=== PATIENT | male | born 1955 | race Caucasian/White ===

== ENCOUNTER 2016-11-03 06:59 | Inpatient (IN) | payer OTHER ==
[~2016-11-03] VITALS: Ht 182.9 cm; Wt 88.5 kg
[2016-11-03] VITALS (7 sets, daily range): BP systolic 113–174; BP diastolic 53–114
--- NOTE | 2016-11-03 07:24 | NUR ---
PT TO ED WITH FOR INCREASING ANXIETY AND DEPRESSION X "FEW WEEKS." DENIES SI/HI. REPORTS PT UNABLE TO FUNCTION AT HOME AND AT WORK. "HE HAS NERVOUS TICKS." TICKS NOTEDIN TRIAGE. PT PRESCRIBED NEW MEDICATION FOR ANXIETY/DEPRESSION "BACK IN " PT REPORTS HE JUST STARTED TAKING IT LAST WEEK. PT REPORTS THAT HE DRINKS 2 GLASSES OF WINE DAILY.
--- NOTE | 2016-11-03 07:44 | NUR ---
DR KOHLI WITH PATIENT
--- NOTE | 2016-11-03 07:56 | ED PSYCHIATRIC COMPLAINT ---
History of Present Illness General Chief Complaint: General Adult Stated Complaint: "PER PANIC ATTACK FOR WEEKS" Source: patient, family Exam Limitations: clinical condition Vital Signs & Intake/Output Vital Signs & Intake/Output Vital Signs Date Time Temp Pulse Resp B/P B/P Pulse O2 O2 Flow FiO2 Mean Ox Delivery Rate 11/03 2199 97.0 54 14 113/72 11/04 1999 97.0 60 20 132/78 11/03 2000 98 Room Air 11/03 1600 97.9 68 20 130/80 11/03 1600 97.9 68 20 130/80 99 Room Air 11/03 1600 99 Room Air 11/03 1412 Room Air Room Air 11/03 1400 69 20 142/53 11/03 1128 97.8 71 18 138/60 98 Room Air 11/03 1127 97.8 71 18 138/60 11/03 1111 99 Room Air 11/03 1041 98.8 100 20 170/114 11/03 1016 98.4 100 20 174/114 11/03 1014 98.4 100 20 174/114 99 Room Air 11/03 0932 97.8 71 18 169/94 11/03 0911 94 20 170/96 99 Room Air 11/03 0756 Room Air 11/03 0718 98.2 99 22 183/99 97 Room Air Allergies Coded Allergies: No Known Allergies (11/03/16) Reconcile Medications Amlodipine Besylate 5 MG TABLET 1 TAB PO DAILY HEART (Reported) Escitalopram Oxalate 5 MG TABLET 1 TAB PO DAILY depression (Reported) Hydrochlorothiazide 12.5 MG TABLET 1 TAB PO DAILY WATER RETENTION (Reported) Lisinopril 20 MG TABLET 1 TAB PO DAILY HEART (Reported) Omeprazole 40 MG CAPSULE.DR 1 CAP PO DAILY GI (Reported) Rosuvastatin Calcium (Crestor) 10 MG TABLET 1 TAB PO DAILY CHOLESTEROL ( Reported) Triage Note: PT TO ED WITH FOR INCREASING ANXIETY AND DEPRESSION X "FEW WEEKS." DENIES SI/HI. REPORTS PT UNABLE TO FUNCTION AT HOME AND AT WORK. "HE HAS NERVOUS TICKS." TICKS NOTEDIN TRIAGE. PT PRESCRIBED NEW MEDICATION FOR ANXIETY/DEPRESSION "BACK IN " PT REPORTS HE JUST STARTED TAKING IT LAST WEEK. Triage Nurses Notes Reviewed? yes Onset: Gradual Duration: week(s): (FEW) Timing: recent history Severity: moderate, severe Associated Symptoms: anxiety HPI: This is a 61-year-old male with history of anxiety, panic attacks, hypertension, dyslipidemia, acid reflux and anxiety presents to the ER with his for chief complaint of worsening anxiety, afraid for the future. 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 The solderer duration is long and he states he is having pain. At this time he is taking money out of his savings to pay for the mortgage. He is not suicidal but very anxious. He started to take Lexapro which his doctor prescribed him back in July but only recently filled it. Yesterday he states he took 3 pills because he was very anxious. Currently not on any short acting anxiolytic. He has a history of panic attacks. reports he is drinking 2-3 glasses of wine per night. She states he gets very forgetful. Yesterday he put up on the stove T and when she did come down the pocket while driving. Denies any drug use. Positive family history of anxiety and both mother and father. Denies any history of suicidal ideations. The states she didn't know what else to do because his symptoms are getting somewhat worse at home. He recently started to see a therapist once a week. According to the he feels better the day that he sees a therapist but other than that he is very anxious over time. Past History Travel History Traveled to [place] past 21 day No Medical History Any Pertinent Medical History? see below for history Neurological: NONE EENT: NONE Cardiovascular: hypertension, hyperlipidemia Respiratory: NONE Gastrointestinal: GERD Hepatic: NONE Renal: NONE Musculoskeletal: NONE Psychiatric: NONE Endocrine: NONE Blood Disorders: NONE Surgical History Surgical History: non-contributory Psychosocial History What is your primary language Pashto Tobacco Use: Quit >30 days ago ETOH Use: occasional use Illicit Drug Use: denies illicit drug use Family History Comment: mother and father with anxiety Hx Contributory? Yes Review of Systems Review of Systems Constitutional: Denies: chills, fever. EENTM: Reports: no symptoms. Respiratory: Denies: cough, short of breath. Cardiovascular: Denies: chest pain. GI: Reports: no symptoms. Genitourinary: Reports: no symptoms. Musculoskeletal: Reports: no symptoms. Skin: Reports: no symptoms. Neurological/Psychological: Reports: anxiety, depressed, emotional problems. Hematologic/Endocrine: Reports: no symptoms. Immunologic/Allergic: Reports: no symptoms. All Other Systems: Reviewed and Negative Physical Exam Physical Exam General Appearance: well developed/nourished, alert, awake, anxious, mild distress, moderate distress Head: atraumatic Eyes: Bilateral: PERRL, EOMI. Ears, Nose, Throat: normal pharynx, normal ENT inspection, hearing grossly normal Neck: normal inspection, supple Respiratory: normal breath sounds Cardiovascular: regular rate/rhythm Gastrointestinal: soft, non-tender Extremities: normal range of motion Neurological/Psychiatric: awake, alert, solid tire finisher II-XII nml as tested, depressed affect, OCCASIONAL TWITCHING OF WHOLE BODY Appearance/Memory/Insight: impaired insight, neat Behavoir/Eye Contact/Speech: avoids eye contact, cooperative, decreased rate of speech Skin: intact, normal color, warm/dry SAD PERSONS Done? patient not suicidal Progress Differential Diagnosis: ANXIETY, DEPRESSION, PANIC ATTACKS, ALCOHOL ABUSE Plan of Care: Orders Procedure Date/time Status URIC ACID 11/04 0500 Active PHOSPHORUS 11/04 0500 Active ICU LAB BUNDLE 11/04 0500 Active CORTISOL AM 11/04 0500 Active CBC WITHOUT DIFFERENTIAL 11/04 0500 Active BASIC ELECTROLYTES PLUS BUN&CR 11/04 0200 Active Heart Healthy Diet 11/03 L Active BASIC ELECTROLYTES PLUS BUN&CR 11/03 2200 Active BASIC ELECTROLYTES PLUS BUN&CR 11/03 1800 Complete RT: Evaluation 11/03 1412 Active BASIC ELECTROLYTES PLUS BUN&CR 11/03 1400 Complete Pathway - chart 11/03 1136 Active Wound Care/Dressing 11/03 1127 Complete Weight 11/03 1127 Complete VTE Mechanical Prophylaxis 11/03 1127 Complete Vital Signs 11/03 1127 Complete Turn and Reposition 11/03 1127 Complete Drains/Tubes 11/03 1127 Complete Teach/Educate 11/03 1127 Active Skin Integrity Protocol 11/03 1127 Active Skin/Pressure Ulcer Assess (Sk 11/03 1127 Active Precautions 11/03 1127 Active Pain Treatment and Response 11/03 1127 Active Nutritional Intake, Monitor 11/03 1127 Active Isolation 11/03 1127 Active CIWA 11/03 1127 Complete Patient Care Conference 11/03 1127 Active Activity/Ambulation 11/03 1127 Active VRE ACTIVE SURVIELLANCE 11/03 0957 Active ACTIVE SURVEILLANCE NARES 11/03 0957 Active BASIC ELECTROLYTES PLUS BUN&CR 11/03 0957 Complete TRC EVALUATION (GEN) 11/03 0918 Complete OXYGEN SETUP (GEN) 11/03 0918 Active Pathway - chart 11/03 0918 Active House Staff 11/03 0918 Active Patient Data 11/03 0918 Active Code Status 11/03 0918 Active Patient Data 11/03 0910 Active Add-on Test (ER Only) 11/03 0909 Active Seizure Precautions 11/03 0908 Active CIWA 11/03 0906 Active ED Holding Orders 11/03 0905 Active Admit to inpatient 11/03 0905 Active Vital Signs 11/03 0905 Active Code Status 11/03 0905 Complete Add-on Test (ER Only) 11/03 0852 Active Add-on Test (ER Only) 11/03 0805 Active EKG 11/03 0805 Active URINE OSMOLALITY 11/03 0800 Complete URINE LYTES, SPOT 11/03 0800 Complete SERUM OSMOLALITY 11/03 0800 Complete MAGNESIUM 11/03 0800 Complete URINE DRUGS OF ABUSE 11/03 0751 Complete THYROID STIMULATING HORMONE 11/03 0751 Complete TROPONIN LEVEL 11/03 0751 Complete FREE T4 11/03 0751 Complete FOLIC ACID 11/03 0751 Complete ETHANOL 11/03 0751 Complete COMPREHENSIVE METABOLIC PANEL 11/03 0751 Complete CBC WITHOUT DIFFERENTIAL 11/03 0751 Complete VITAMIN B12 11/03 0751 Complete THERAPIST ORDERS 11/03 UNK Complete Lab Add-on Test 11/03 UNK Active VTE Mechanical Prophylaxis 11/03 UNK Active Vital Signs 11/03 UNK Complete MISTAKE 11/03 UNK Active Intake & Output 11/03 UNK Active Hemoccult 11/03 UNK Active CIWA 11/03 UNK Complete SOCIAL WORK CONSULT 11/03 UNK Active PSYCHIATRIC CONSULT 11/03 UNK Active Current Medications Sig/Yosvany Start time Last Medication Dose Stop Time Status Admin Lisinopril 20 MG DAILY 11/03 1049 AC (Prinivil) Amlodipine Besylate 5 MG DAILY 11/03 1009 AC 11/03 (Norvasc) 1041 Laboratory Tests 11/03/16 2158: Sodium Pending, Potassium Pending, Chloride Pending, Carbon Dioxide Pending, Anion Gap Pending, BUN Pending, Creatinine Pending, BUN/Creatinine Ratio Pending 11/03/16 1810: Anion Gap 12, Estimated GFR > 60, BUN/Creatinine Ratio 11.1 11/03/16 1400: Anion Gap 11, Estimated GFR > 60, BUN/Creatinine Ratio 11.3 11/03/16 1200: Sodium Cancelled, Potassium Cancelled, Chloride Cancelled, Carbon Dioxide Cancelled, Anion Gap Cancelled, BUN Cancelled, Creatinine Cancelled, BUN/ Creatinine Ratio Cancelled 11/03/16 1035: Anion Gap 12, Estimated GFR > 60, BUN/Creatinine Ratio 11.4 11/03/16 0852: Urine Total Volume Cancelled, Ur Sodium 24 Hour Cancelled, Ur Potassium 24 Hour Cancelled 11/03/16 0800: Serum Alcohol < 10.0 11/03/16 0800: Anion Gap 11, Estimated GFR > 60, BUN/Creatinine Ratio 14.3, Glucose 119 H, Serum Osmolality 238 L, Calcium 9.4, Magnesium 1.6, Total Bilirubin 1.4 H, AST 40, ALT 32, Alkaline Phosphatase 67, Troponin I < 0.01, Total Protein 7.4, Albumin 4.8, Globulin 2.6, Albumin/Globulin Ratio 1.8, Vitamin B12 807, Folate 14.6, TSH 0.790, Free T4 1.38, CBC w Diff NO MAN DIFF REQ, RBC 4.46 L, MCV 89.7 , MCH 31.1 H, RDW 12.1, MPV 7.1 L, Gran % 75.4 H, Lymphocytes % 10.4 L, Monocytes % 13.1 H, Eosinophils % 0.7, Basophils % 0.4, Absolute Granulocytes 4.4, Absolute Lymphocytes 0.6 L, Absolute Monocytes 0.8 H, Absolute Eosinophils 0, Absolute Basophils 0, PUBS MCHC 34.7, Urine Opiates Screen < 100.00, Methadone Screen < 40, Barbiturate Screen < 60, Ur Phencyclidine Scrn < 6.00, Amphetamines Screen < 100, U Benzodiazepines Scrn < 85, Urine Cocaine Screen < 50, Urine Cannabis Screen < 5.00, Urine Osmolality 302, Ur Random Creatinine 26.1, Ur Random Sodium 79, Ur Random Potassium 31.4, Fraction Sodium Excret 1.9 H Microbiology 11/03 1110 UPPER RESP: Surveillance Culture - RECD 11/03 0957 GI: Surveillance Culture - COLB LABS, UTOX, CRISIS CONSULT 11/03/2016 9:01:51 AM Sodium is 112. Patient is on hydrochlorothiazide, also admits to drinking a lot of daily water. 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 Patient with notable twitching. He is awake and alert and oriented D/W Dr. Pearson fo radmission. Will admit to ICu for sodium correction, seizure precuations and to monitor CIWAs. Will need renal consultation. (SEUN ELAINE,[facility]) Departure Departure Time of Disposition: 903 Disposition: STILL A PATIENT Condition: Stable Clinical Impression Primary Impression: Hyponatremia Secondary Impressions: Alcohol abuse, Anxiety Referrals: UNKNOWN (PCP/Family) Departure Forms: Customer Survey General Discharge Information Admission Note Spoke With: GUILLERMO ELAINE,[facility] Documentation of Exam: Documentation of any treatments & extenuating circumstances including Concerns Regarding Discharge (functional status, medication knowledge or non-compliance, living conditions, etc.) that warrant an admission rather than observation: [ICU MONITOR, RENAL CONSULT, MONITOR I/O, MONITOR CIWA SCORES, FOLLOW UP URINE ELECTROLYTES, SLOW CORRECTION OF SODIUM]
--- NOTE | 2016-11-03 07:59 | NUR ---
PT PLACED IN BLUE SCRUBS AND WANDED BY SECURITY. BELONGINGS WITH . PT VERBALIZED INCREASED ANXIETY AND DEPRESSION WITH DECREASED ABILITY TO COPE WITH FINANCIAL DIFFICULTIES. DENIES SI/HI
[2016-11-03 08:16] LABS: ABSOLUTE BASOPHIL COUNT 0 /CUMM (0.0-0.2); ABSOLUTE EOSINOPHIL COUNT 0 /CUMM (0.0-0.7); ABSOLUTE GRANULOCYTE CT 4.4 /CUMM (1.4-6.5); ABSOLUTE LYMPH COUNT 0.6 /CUMM (1.2-3.4); ABSOLUTE MONOCYTE COUNT 0.8 /CUMM (0.10-0.60); BASOPHIL % 0.4 % (0.0-2.0); EOSINOPHIL % 0.7 % (0-5); GRANULOCYTE % 75.4 % (42.2-75.2); MEAN CORPUSCULAR HGB 31.1 PG (27.0-31.0); MEAN CORPUSCULAR HGB CONC 34.7 G/DL (33.0-37.0); MEAN CORPUSCULAR VOLUME 89.7 FL (80.0-94.0); MEAN PLATELET VOLUME 7.1 FL (7.4-10.4); PLATELET COUNT 322 /CUMM (130-400); RBC DISTRIBUTION WIDTH 12.1 % (11.5-14.5); RED BLOOD CELL CT 4.46 /CUMM (4.70-6.10); WHITE BLOOD CELL COUNT 5.9 /CUMM (4.8-10.8)
--- NOTE | 2016-11-03 08:48 | NUR ---
CRITICAL TEST RESULTS [id number] ALEM MARTINEZ 61 M TESTS AND RESULTS: NA = 112 Results received and read back by: MARCI JULIEN Results received date and time: 11/03/16 0848 The following provider was notified of the results, and read the results back: DR KOHLI Notified date and time: 11/03/16 at 0849
[2016-11-03] MEDS ORDERED: HYDROCHLOROTH12.5 M2 PO (09:14)
[2016-11-03] MEDS ORDERED: LISINOPRIL20 M1 PO (09:14)
[2016-11-03] MEDS ORDERED: AMLODIPINE BESYL5 M1 PO (09:14)
[2016-11-03] MEDS ORDERED: OMEPRAZOLE40 M1 PO (09:15)
[2016-11-03] MEDS ORDERED: CRESTOR10 M1 PO (09:15)
--- NOTE | 2016-11-03 09:16 | History & Physical ---
SHILPA SHARMA 11/03/16 0915: General Information and HPI MD Statement: I have seen and personally examined ALEM MARTINEZ and documented this H&P. The patient is a 61 year old M who presented with a patient stated chief complaint of "twitching". Source of Information: patient Exam Limitations: no limitations History of Present Illness: This is a 61-year-old male with past medical history significant for hypertension, dyslipidemia, GERD, anxiety, panic attacks who initially presented to the referring ED for worsening of anxiety was noted to have generalized twitching. Per patient, twitching started 3 months ago and gradually worsened. He reports sudden movements in his shoulder girdle which last the whole day for the most part and continue during night for this reason he is only able to sleep about an hour every night. Patient reports drinking approximately 2 L of water every day because he was trying to keep hydrated. Denies excessive thirst or excessive urination. However mentions that recently he has to wake up about 3-4 times during night to urinate. Denies any other urinary symptoms including dysuria, hesitation, urgency. Denies loss of consciousness, dizziness, lightheadedness, change in mentation, seizures. He was recently prescribed escitalopram for depression and started taking this medication 2 days ago. He is also on hydrochlorothiazide. He states that, he visited his cementer machine Dr. De La Rosa ([phone]) in June and was told his blood sodium level is low, does not know how low it was. Patient drinks approximately 3 glasses of wine every day and also drinks beer almost every day. Denies any HI or SI. Allergies/Medications Allergies: Coded Allergies: hydrochlorothiazide (Severe, sever hyponatremia 11/04/16) Home Med list Amlodipine Besylate 5 MG TABLET 1 TAB PO DAILY HEART (Reported) Escitalopram Oxalate 5 MG TABLET 1 TAB PO DAILY depression (Reported) Hydrochlorothiazide 12.5 MG TABLET 1 TAB PO DAILY WATER RETENTION (Reported) Lisinopril 20 MG TABLET 1 TAB PO DAILY HEART (Reported) Omeprazole 40 MG CAPSULE.DR 1 CAP PO DAILY GI (Reported) Rosuvastatin Calcium (Crestor) 10 MG TABLET 1 TAB PO DAILY CHOLESTEROL ( Reported) Past History Travel History Traveled to [place] past 21 day No Medical History Neurological: NONE EENT: NONE Cardiovascular: hypertension, hyperlipidemia Respiratory: NONE Gastrointestinal: GERD Hepatic: NONE Renal: NONE Musculoskeletal: NONE Psychiatric: NONE Endocrine: NONE Blood Disorders: NONE Surgical History Surgical History: non-contributory Past Family/Social History Psychosocial History ETOH Use: occasional use Illicit Drug Use: denies illicit drug use Review of Systems Review of Systems Constitutional: Denies: chills, diaphoresis, fever, malaise, weakness, unexplained weight loss. EENTM: Denies: blurred vision, double vision, visual changes, eye pain, eye drainage, eye tearing, icterus, ear discharge, ear pain, ear redness, hearing changes, nasal congestion, epistaxis, nasal pain, throat pain. Cardiovascular: Denies: chest pain, edema, orthopena, palpitations, peripheral edema, syncope. Respiratory: Denies: cough, hemoptysis, orthopnea, short of breath, sputum production, stridor, wheezing. GI: Denies: abdominal pain, bloating, constipation, diarrhea, distention, bowel incontinence, melena, nausea, bloody stool, changes in stool, vomiting, steatorrhea. Genitourinary: Denies: discharge, dysuria, frequency, hematuria, hesitation, nocturia, pain, urgency. Musculoskeletal: Denies: back pain, gout, joint pain, joint swelling, muscle pain, muscle stiffness, neck pain. Skin: Reports: no symptoms. Neurological/Psychological: Reports: anxiety, depressed. Denies: ataxia, cognitive dysfunction, confusion, dementia, emotional problems, headache, numbness, paresthesia, pre-existing deficit, petit mal seizures, tingling, tremors, tonic-clonic seizures. Hematologic/Endocrine: Reports: no symptoms. Immunologic/Allergic: Reports: no symptoms. All Other Systems: Reviewed and Negative Exam & Diagnostic Data Last 24 Hrs of Vital Signs/I&O Vital Signs Date Time Temp Pulse Resp B/P B/P Pulse O2 O2 Flow FiO2 Mean Ox Delivery Rate 11/03 1016 98.4 100 20 174/114 11/03 1014 98.4 100 20 174/114 99 Room Air 11/03 0932 97.8 71 18 169/94 11/03 0911 94 20 170/96 99 Room Air 11/03 0756 Room Air 11/03 0718 98.2 99 22 183/99 97 Room Air Intake & Output 11/03 1600 11/03 0800 11/03 0000 Intake Total 150 Output Total 1000 Balance -850 Intake, IV 150 Output, Urine 1000 Patient 195 lb Weight Physical Exam General Appearance Alert, Oriented X3, Cooperative, No Acute Distress Skin No Rashes, No Breakdown, No Significant Lesion Skin Temp/Moisture Exam: Warm/Dry Sepsis Skin Exam (color): Normal for Ethnicity HEENT Atraumatic, PERRLA, EOMI, Mucous Membr. moist/pink Neck Supple, No JVD, No thryomegaly, +2 Carotid Pulse wo Bruit, No LAD Lymphatic Axillary nl, Cervical nl Cardiovascular Regular Rate, Normal S1, Normal S2, No Murmurs, Gallops, Rubs Lungs Clear to Auscultation, Normal Air Movement Abdomen Normal Bowel Sounds, Soft, No Tenderness, No Hepatospenomegaly, No Masses Neurological Normal Speech, Strength at 5/5 X4 Ext, Normal Tone, Sensation Intact, Cranial Nerves 3-12 NL, Reflexes 2+, Sudden frequent upward movements in shoulder girdle noted. Extremities No Clubbing, No Cyanosis, No Edema, Normal Pulses, No Tenderness/ Swelling Vascular Normal Pulses, Pulses Symmetrical Last 24 Hrs of Labs/Jaime: Laboratory Tests 11/03/16 0800: Serum Alcohol < 10.0 11/03/16 0800: Anion Gap 11, Estimated GFR > 60, BUN/Creatinine Ratio 14.3, Glucose 119 H, Serum Osmolality 238 L, Calcium 9.4, Magnesium 1.6, Total Bilirubin 1.4 H, AST 40, ALT 32, Alkaline Phosphatase 67, Troponin I < 0.01, Total Protein 7.4, Albumin 4.8, Globulin 2.6, Albumin/Globulin Ratio 1.8, Vitamin B12 807, Folate 14.6, TSH 0.790, Free T4 1.38, CBC w Diff NO MAN DIFF REQ, RBC 4.46 L, MCV 89.7 , MCH 31.1 H, RDW 12.1, MPV 7.1 L, Gran % 75.4 H, Lymphocytes % 10.4 L, Monocytes % 13.1 H, Eosinophils % 0.7, Basophils % 0.4, Absolute Granulocytes 4.4, Absolute Lymphocytes 0.6 L, Absolute Monocytes 0.8 H, Absolute Eosinophils 0, Absolute Basophils 0, PUBS MCHC 34.7, Urine Opiates Screen < 100.00, Methadone Screen < 40, Barbiturate Screen < 60, Ur Phencyclidine Scrn < 6.00, Amphetamines Screen < 100, U Benzodiazepines Scrn < 85, Urine Cocaine Screen < 50, Urine Cannabis Screen < 5.00, Ur Random Creatinine 26.1, Ur Random Sodium 79, Ur Random Potassium 31.4, Fraction Sodium Excret 1.9 H Microbiology 11/03 956 UPPER RESP: Surveillance Culture - ORD 11/03 956 GI: Surveillance Culture - ORD Diagnostic Data EKG Results SR , Rate 80, No ST-T wave abnormalities, QTC 420. Assessment/Plan Assessment: This is a 61-year-old male with past medical history significant for hypertension, dyslipidemia, GERD, anxiety, panic attacks, generalized twitching with hypotonic hyponatremia in the setting of excessive drinking including beer, increased free water intake (approximately 2 L per day), being on SSRIs and hydrochlorothiazide. Urine osmolality and lites were checked in the ED, patient was started on IV normal saline. Problem list #Euvolemic hypotonic hyponatremia; likely SIADH versus a beer potomania versus polydipsia #History of anxiety/depression #Excessive drinking #Hypertension Plan * Vital signs per protocol * Strict I's and O's * Will discontinue IV fluids and maintain the patient on 800 mL of fluid restriction per day. * Will check sodium levels every 2 hours. * Nephrology consult * Monitor CIWA; 25 mg Librium given once. Consider starting the patient on standing order. * Will hold POCKET OPERATOR hydrochlorothiazide, SSRI. Will continue other home medications. * Patient was hypertensive to 170s over 100 upon admission and received IV labetalol in the ED, monitor blood pressure closely * Psych and social consult * Consider neurology consult for abnormal involuntary movements. * DVT prophylaxis at all times * Patient is full code As Ranked By This Provider Problem List: 1. Anxiety 2. Hyponatremia Core Measures/Miscellaneous Acute Coronary Syndrome ACS Diagnosis: No Cerebrovascular Accident CVA/TIA Diagnosis: No Congestive Heart Failure CHF Diagnosis: No VTE (View Protocol) VTE Risk Factors: Age > 40 No [facility] VTE prophylaxis d/t: No contraindications No VTE Pharm Prophylaxis d/t: No contraindications VTE Diagnosis: No VTE Type: NONE VTE Confirmed by (Test): NONE Sepsis (View Protocol) Severe Sepsis Present: No Septic Shock Septic Shock Present: No Miscellaneous Documentation Attending Case Discussed With: GUILLERMO ELAINE,LENCHO Mckeon Primary Care Physician: UNKNOWN Patient sees these Specialists Shirt Hemmer Dr. De La Rosa ([phone]) Level of Patient Care: Critical Care (CRI) GUILLERMO ELAINE,[facility] 11/03/161921: Attending MD Review Statement Attending Statement Attending MD Statement: examined this patient, discuss w/resident/PA/PATTERN CHART WRITER, agreed w/resident/PA/PATTERN CHART WRITER, discussed with family, reviewed EMR data (avail), discussed with nursing, discussed with case mgmt, reviewed images, amended to note Attending Assessment/Plan: Seen and examined independently 61-year-old gentleman because of severe hyponatremia. He came to the emergency department this morning complaining of progressive twitchiness. On questioning, he has had this sort of neuromuscular irritability for at least several weeks if not longer but recently it has been getting worse which she initially attributed to anxiety. He has apparently been experiencing some financial problems and is in between jobs. (See below). His tells me that he has been acting somewhat "foggy" for at least several weeks if not longer. Interestingly, he's been told of hyponatremia about 4 or 5 months ago but no specific therapy or change in medications was prescribed. Last fall, he was started on hydrochlorothiazide and this was continued despite the finding of hyponatremia earlier this year. In addition, because of anxiety, he was started on escitalopram (Lexapro) about one week ago at a dose of 5 mg daily but he tells me that because of his increasing agitation he took 3 tablets instead of 1 yesterday. He also admits to a very high fluid intake, primarily water, in an effort to maintain hydration. He has nocturia several times at night which recently has been somewhat more prominent. Past medical history is positive for hypertension, hyperlipidemia and GERD. As noted, he has recently been treated for increased anxiety and agitation. Medications: Amlodipine, lisinopril, hydrochlorothiazide, Lexapro, omeprazole, Crestor. Allergies: No known drug allergies Family history: Positive for thyroid disease in several family members as well as thyroid cancer in his 25-year-old daughter when she was 20. Neither of his parents had any history of renal disease or hyponatremia. Physical Exam: General: Well-developed, somewhat anxious white male in NAD Skin: No rash or jaundice HEENT: Conjunctivae pink, sclerae anicteric, mucous membranes moist Neck: Without masses or thyromegaly, no supraclavicular or cervical adenopathy Chest: Clear to P&A Heart: Regular rate and rhythm without S3 or rub Abdomen: Soft and nontender without palpable masses or organomegaly Extremities: Without cyanosis or edema Neuro: No focal findings, no asterixis or myoclonus but he does have spontaneous myoclonic activity. IMPRESSION This a gentleman with multiple issues with depression and anxiety, hypertension, long-standing use of hydrochlorothiazide, significant polydipsia by history, alcohol use/abuse, now has Profound hyponatremia Neuromuscular irritability related to hyponatremia Alcohol abuse rule out DTs Anxiety and depression Hyponatremia appears multifactorial related to drug-induced, polydipsia, SSRI causing issues Hypertension Plan Fluid restriction Nephrology consult seen and appreciated Plan is to slowly increase sodium to avoid demyelination syndromes Watch for DT Continue to follow his blood work Check thyroid function No further diuretic her SSRI If his sodium were to rise quickly then patient would require D5 water Patient is critically ill total time spent 40 minutes
--- NOTE | 2016-11-03 09:34 | NUR ---
PT TO ROOM 107
[2016-11-03] MEDS ORDERED: ESCITALOPRAM OXA5 MG PO (10:17)
--- NOTE | 2016-11-03 10:18 | NUR ---
FULL BODY TWITCHING NOTED AT TIMES. ALERT, ANXIOUS, C/O SLIGHT LUQ PAIN.
--- NOTE | 2016-11-03 10:39 | NUR ---
REPORT TO KENNETH CARVALHO IN ICU
--- NOTE | 2016-11-03 12:32 | NUR ---
Patient arrived to [facility] from ER at approx 1110 accompanied by RN on the monitor car operator. He was able to ambulate independantly from the stretcher to the bed. He is alert and can answer questions appropriately however is forgetful and occasionally becomes disoriented per the . He can follow commands and move all extremities. Occasional jerk-like/twitching movements noted. He received po libirum in the ER. Hx of depression and anxiety- Verbalized to this RN that he has constant negative thoughts- Denies any SI- Feels safe in the hospital but has anxiety and nervousness at home due to stressors. A psych and social work consult has been ordered. He is NSR on the tele monitor, HR= 70-90's. SBP: 130-150's and he denies chest pain. Pulses are palpable. On room air, lungs clear O2 sats stable at 99%. Denies any shortness of breath or difficulty breathing. Abdomen is soft and non tender with + bowel sounds. Denies any nausea and vomiting. Tolerating po well and ate 100% of lunch. He is currently on a 800ml fluid restriction and was educated by this residential mortgage underwriter and Dr. Marc. Voiding clear yellow urine in urinal. Skin is intact with no areas of pressure injury currently noted. He denies pain but does complain of occasional soreness to the right flank which is associated with the twitching movements. Refused tylenol and icepacks. Vitals are currently stable and patient and oriented to unit and call bautista. Dr Marc in to discuss plan of care. Labs due to be drawn at 1400. Will continue to closely monitor patient.
--- NOTE | 2016-11-03 14:52 | NUR ---
Sw received consult from MD Homero for ETOH dependence. Pt was in ED and now in ICU. Sw to follow and speak with pt when he is able. Pt on CIWA.
--- NOTE | 2016-11-03 15:01 | Cons- Nephrology ---
General Information and HPI Consulting Request Date of Consult: 11/03/16 Requested By: LENCHO LI MD Reason for Consult: Hyponatremia Source of Information: patient, family Exam Limitations: no limitations History of Present Illness: I have been asked to see this 61-year-old gentleman because of severe hyponatremia. He came to the emergency department this morning complaining of progressive twitchiness. On questioning, he has had this sort of neuromuscular irritability for at least several weeks if not longer but recently it has been getting worse which she initially attributed to anxiety. He has apparently been experiencing some financial problems and is in between jobs. (See below). His tells me that he has been acting somewhat "foggy" for at least several weeks if not longer. Interestingly, he's been told of hyponatremia about 4 or 5 months ago but no specific therapy or change in medications was prescribed. Last fall, he was started on hydrochlorothiazide and this was continued despite the finding of hyponatremia earlier this year. In addition, because of anxiety, he was started on escitalopram (Lexapro) about one week ago at a dose of 5 mg daily but he tells me that because of his increasing agitation he took 3 tablets instead of 1 yesterday. He also admits to a very high fluid intake, primarily water, in an effort to maintain hydration. He has nocturia several times at night which recently has been somewhat more prominent. Past medical history is positive for hypertension, hyperlipidemia and GERD. As noted, he has recently been treated for increased anxiety and agitation. Medications: Amlodipine, lisinopril, hydrochlorothiazide, Lexapro, omeprazole, Crestor. Allergies: No known drug allergies Family history: Positive for thyroid disease in several family members as well as thyroid cancer in his 25-year-old daughter when she was 20. Neither of his parents had any history of renal disease or hyponatremia. Social history: He lives with his of 32 years, stopped smoking cigarettes 30 years ago, experimented with marijuana and cocaine (1) while in college, no history of IV drug abuse. He does drink a significant amount of alcohol including 2-3 glasses of wine per day as well as a cocktail and/or beer. He denies any alcohol related medical problems nor that he is an alcoholic. He does not drink early in the day. 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 Allergies/Medications Allergies: Coded Allergies: No Known Allergies (11/03/16) Home Med List: Amlodipine Besylate 5 MG TABLET 1 TAB PO DAILY HEART (Reported) Escitalopram Oxalate 5 MG TABLET 1 TAB PO DAILY depression (Reported) Hydrochlorothiazide 12.5 MG TABLET 1 TAB PO DAILY WATER RETENTION (Reported) Lisinopril 20 MG TABLET 1 TAB PO DAILY HEART (Reported) Omeprazole 40 MG CAPSULE.DR 1 CAP PO DAILY GI (Reported) Rosuvastatin Calcium (Crestor) 10 MG TABLET 1 TAB PO DAILY CHOLESTEROL ( Reported) Review of Systems Review of Systems Constitutional: Reports: unexplained weight loss (about 10 pounds over the past ). EENTM: Reports: no symptoms. Cardiovascular: Reports: no symptoms. Respiratory: Reports: no symptoms. GI: Reports: no symptoms. Genitourinary: Reports: nocturia. Musculoskeletal: Reports: no symptoms. Skin: Reports: no symptoms. Neurological/Psychological: Reports: anxiety, depressed, tremors. Hematologic/Endocrine: Reports: no symptoms. Past History Travel History Traveled to [place] past 21 day No Medical History Blood Transfusion Hx: No Neurological: twitching EENT: NONE Cardiovascular: hypertension, hyperlipidemia Respiratory: NONE Gastrointestinal: GERD Hepatic: NONE Renal: NONE Musculoskeletal: NONE Psychiatric: anxiety, depression Endocrine: NONE Blood Disorders: NONE Cancer(s): NONE SHELLFISH SORTER/Reproductive: NONE Surgical History Surgical History: non-contributory Psychosocial History Where Do You Live? Home Services at Home: None Smoking Status: Former Smoker ETOH Use: occasional use Illicit Drug Use: denies illicit drug use Exam & Diagnostic Data Vital Signs and I&O Vital Signs Date Time Temp Pulse Resp B/P B/P Pulse O2 O2 Flow FiO2 Mean Ox Delivery Rate 11/03 1412 Room Air Room Air 11/03 1400 69 20 142/53 11/03 1128 97.8 71 18 138/60 98 Room Air 11/03 1127 97.8 71 18 138/60 11/03 1111 99 Room Air 11/03 1041 98.8 100 20 170/114 11/03 1016 98.4 100 20 174/114 11/03 1014 98.4 100 20 174/114 99 Room Air 11/03 0932 97.8 71 18 169/94 11/03 0911 94 20 170/96 99 Room Air 11/03 0756 Room Air 11/03 0718 98.2 99 22 183/99 97 Room Air Intake & Output 11/03 1600 11/03 0400 11/02 1600 11/02 0400 11/01 1600 11/01 0400 Intake Total 350 Output Total 2300 Balance -1950 Intake, IV 150 Intake, Oral 200 Output, Urine 2300 Patient 195 lb Weight Weight Estimated Measurement Method Physical Exam: General: Well-developed, somewhat anxious white male in NAD Skin: No rash or jaundice HEENT: Conjunctivae pink, sclerae anicteric, mucous membranes moist Neck: Without masses or thyromegaly, no supraclavicular or cervical adenopathy Chest: Clear to P&A Heart: Regular rate and rhythm without S3 or rub Abdomen: Soft and nontender without palpable masses or organomegaly Extremities: Without cyanosis or edema Neuro: No focal findings, no asterixis or myoclonus but he does have spontaneous myoclonic activity. According to the patient and his his mental acuity is not normal but he is oriented, coherent and responds appropriately on this examination Assessment/Plan Assessment/Recommendations Assessment: 61-year-old gentleman with severe hyponatremia which has probably been present at least some degree for over 6 months, likely drug-induced in the setting of long-term treatment with hydrochlorothiazide and more recently with an SSRI ( escitalopram). His neuromuscular irritability is presumably on this basis as is his reported lack of mental acuity over the past several weeks to months. There is no indication - and indeed there is a contraindication - for aggressive correction of his serum sodium level. Parenthetically, with regard to his neuromuscular irritability, potassium, calcium, magnesium and bicarbonate levels levels are within normal limits. Recommendations: 1. Thyroid functions, a.m. cortisol, serum uric acid, serum phosphorus level 2. Limit by mouth fluid intake to 800 mL per day 3. Monitor electrolytes on an every 4 hours basis for now 4. No further diuretic or SSRI therapy 5. Our goal is a slow rise in serum sodium of approximately 8 mEq in 24 hours . Should serum sodium rise more quickly than that, then we will need to infuse D5W and/or increase his by mouth fluid allotment. 6. Should his serum sodium failed to rise with fluid restriction alone, then we will start sodium chloride tablets plus furosemide Thank you for asking me to assist in Mr. Ko's care. We will follow closely with you.
--- NOTE | 2016-11-03 20:55 | NUR ---
PT AWAKE AND ALERT WITH NO COMPLAINTS, HR SB TO SR 50'S TO 60'S, SBP 130'S. LAST SODIUM 116 FROM 1800, PATIENT NOTIFIED. 800ML FLUID RESTRICTION BEING FOLLOWED. PT VOIDING IN URINAL CLEAR AND YELLOW. SKIN INTACT. POC EXPLAINED FOR NIGHT AND PT VERBALIZED UNDERSTANDING.
--- NOTE | 2016-11-03 21:22 | NUR ---
PT JOSE DOWN TO 50, PT WAS ASYMPTOMATIC, SLEEPING NO COMPLAINTS. NOTIFIED MD GUZMAN. NO FURTHER ORDERS GIVEN.
[2016-11-04] VITALS (7 sets, daily range): BP systolic 110–128; BP diastolic 64–78
[2016-11-04 03:19] LABS: ABSOLUTE BASOPHIL COUNT 0 /CUMM (0.0-0.2); ABSOLUTE EOSINOPHIL COUNT 0.1 /CUMM (0.0-0.7); ABSOLUTE GRANULOCYTE CT 4.2 /CUMM (1.4-6.5); ABSOLUTE LYMPH COUNT 1.5 /CUMM (1.2-3.4); ABSOLUTE MONOCYTE COUNT 1.1 /CUMM (0.10-0.60); BASOPHIL % 0.4 % (0.0-2.0); EOSINOPHIL % 1.6 % (0-5); GRANULOCYTE % 61.1 % (42.2-75.2); HEMATOCRIT 41.5 % (42-52); MEAN CORPUSCULAR HGB 30.9 PG (27.0-31.0); MEAN CORPUSCULAR HGB CONC 33.4 G/DL (33.0-37.0); MEAN CORPUSCULAR VOLUME 92.5 FL (80.0-94.0); MEAN PLATELET VOLUME 7.1 FL (7.4-10.4); PLATELET COUNT 346 /CUMM (130-400); RBC DISTRIBUTION WIDTH 12.5 % (11.5-14.5); RED BLOOD CELL CT 4.49 /CUMM (4.70-6.10); WHITE BLOOD CELL COUNT 6.9 /CUMM (4.8-10.8)
--- NOTE | 2016-11-04 06:05 | NUR ---
PT SINUS JOSE IN 50'S MOST OF NIGHT, PT DID GO LOW 47, PT WAS ASYMPTOMATIC AND SLEEPING AT THESE TIMES. NOTIFIED MD SOTO. NO FURTHER ORDERS GIVEN.
--- NOTE | 2016-11-04 08:01 | PN- Resident CRCU ---
Subjective HPI/CRCU Issues: Afebrile, hemodynamically stable, mildly bradycardic, and saturating well on room air. Patient looks mildly anxious this morning, he denies any other current active complaints. No acute overnight event was reported. Objective Vital Signs & I&O Last 8 Hrs of Vitals and I&O: Vital Signs Date Time Temp Pulse Resp B/P B/P Pulse O2 O2 Flow FiO2 Mean Ox Delivery Rate 11/04 0835 58 120/64 11/04 0834 58 120/64 11/04 0800 98.3 58 18 120/64 11/04 0700 98.3 58 18 120/64 97 Room Air 11/04 0400 98 Room Air Exam General Appearance: well developed/nourished, no apparent distress, alert, awake , anxious, comfortable Head: atraumatic, normal appearance Respiratory: normal breath sounds, chest non-tender, no respiratory distress, quiet respiration Cardiovascular: regular rate/rhythm Gastrointestinal: normal bowel sounds, soft, non-tender Extremities: normal inspection, no edema Current Medications: Current Medications Sig/Yosvany Start time Last Medication Dose Route Stop Time Status Admin Acetaminophen 650 MG ONCE ONE 11/03 1415 DC 11/03 PO 11/03 1416 1412 Amlodipine Besylate 5 MG DAILY 11/03 1009 AC 11/04 PO 0834 Lisinopril 20 MG DAILY 11/03 1049 AC 11/04 PO 0835 Lorazepam 0.5 MG ONCE ONE 11/04 1130 AC IV 11/04 1131 Impression/Plan Impression/Problem List Impression: 61-year-old male with PMH significant for hypertension, dyslipidemia, GERD, anxiety, and panic attacks, who presented because of worsening anxiety and was found to have generalized twitching with profound hyponatremia. Patient is taking SSRIs and hydrochlorothiazide. He also reported significant polydipsia and alcohol use. TSH was found to be normal #Hyponatremia likely drug-induced * Most likely drug-induced in the setting of long-term treatment with hydrochlorothiazide and more recently with an SSRI (escitalopram) * Sodium corrected from 112 to 121 over less than 24-hour. * We will change fluids restriction from 800 to be 1200 daily * We will repeat the BEP every 6 hours #History of anxiety/depression * Hold SSRI given the hyponatremia * Will use 0.5 mg Ativan to break through anxiety #Alcohol use * Continue CIWA monitoring * As needed chlordiazepoxide if he has any evidence of DTs but unlikely that he' ll go through DTs * Follow psych recommendations #Hypertension * Hydrochlorothiazide was added to the patient allergies * Continue lisinopril 20 mg daily * Continue amlodipine 5 mg daily Heart healthy diet with 1200 fluids restriction DVT PPx mechanical and pharmacological Full code Problem List: 1. Anxiety 2. Hyponatremia 3. Alcohol abuse Pain Ratin Tomorrow's Labs & Rationales: CBC and ICU bundle Plan DVT/Prophylaxis: mechanical, pharmacological
--- NOTE | 2016-11-04 08:43 | PN- CRCU ---
Subjective HPI/Critical Care Issues: Doing a little better Afebrile Vital signs have been stable SIGNIFICANT DATA Sodium up to 121 which has slowly improved over the past 24 hours Potassium 3.7 Thyroid function tests are normal IMPRESSION Objective Current Medications: Current Medications Sig/Yosvany Start time Last Medication Dose Route Stop Time Status Admin Acetaminophen 650 MG ONCE ONE 11/03 1415 DC 11/03 PO 11/03 1416 1412 Amlodipine Besylate 0 .STK-MED ONE 11/03 1044 DC PO Amlodipine Besylate 5 MG DAILY 11/03 1009 AC 11/03 PO 1041 Chlordiazepoxide HCl 0 .STK-MED ONE 11/03 1019 DC PO Chlordiazepoxide HCl 25 MG ONCE ONE 11/03 1015 DC 11/03 PO 11/03 1016 1018 Labetalol HCl 0 .STK-MED ONE 11/03 0933 DC IV Labetalol HCl 10 MG ONCE ONE 11/03 0915 DC 11/03 IV 11/03 0916 0932 Lisinopril 20 MG DAILY 11/03 1049 AC PO Sodium Chloride 1,000 ML ONCE ONE 11/03 0900 DC 11/03 IV 11/03 1539 0915 Vital Signs & I&O Last 24 Hrs of Vitals and I&O: Vital Signs Date Time Temp Pulse Resp B/P B/P Pulse O2 O2 Flow FiO2 Mean Ox Delivery Rate 11/04 0400 98 Room Air 11/04 0000 97.7 58 22 128/78 11/04 0000 99 Room Air 11/04 0000 97.7 58 22 128/78 99 Room Air 11/03 2200 97.0 54 14 113/72 11/04 1999 97.0 60 20 132/78 11/04 1999 98 Room Air 11/03 1600 97.9 68 20 130/80 11/03 1600 97.9 68 20 130/80 99 Room Air 11/03 1600 99 Room Air 11/03 1412 Room Air Room Air 11/03 1400 69 20 142/53 11/03 1128 97.8 71 18 138/60 98 Room Air 11/03 1127 97.8 71 18 138/60 11/03 1111 99 Room Air 11/03 1041 98.8 100 20 170/114 11/03 1016 98.4 100 20 174/114 11/03 1014 98.4 100 20 174/114 99 Room Air 11/03 0932 97.8 71 18 169/94 11/03 0911 94 20 170/96 99 Room Air Intake & Output 11/04 1600 11/04 0800 11/04 0000 Intake Total 222 341 Output Total 600 1100 Balance -378 -759 Intake, IV 0 0 Intake, Oral 222 341 Number 0 0 Bowel Movements Output, Urine 600 1100 Impression/Plan Impression/Plan Impression/Plan: IMPRESSION This a gentleman with multiple issues with depression and anxiety, hypertension, long-standing use of hydrochlorothiazide, significant polydipsia by history, alcohol use/abuse, now has * Profound hyponatremia, slowly improving * Neuromuscular irritability related to hyponatremia, slowly improving * Alcohol abuse rule out DTs * Anxiety and depression * Hyponatremia appears multifactorial related to drug-induced, polydipsia, SSRI causing issues * Hypertension RECOMMENDATION Continue fluid restriction Continue antihypertensives As needed chlordiazepoxide if he has any evidence of DTs but unlikely that he'll go through DTs Psychiatry consult Out of bed to chair Please make patient allergic to hydrochlorothiazide Check his sodium often Nephrology to guide us today to see if the patient can be transferred to the general medical floor Increase activity
--- NOTE | 2016-11-04 10:17 | Cons- Psychiatry ---
Psychiatric Consult Date of Consult: 11/04/16 Reason for Consult: "Anxiety, depression." Ordered by Dr. Homero Pearson attending History of Present Illness: Identifying Info: 61-year-old male presents to [facility] emergency department on 11/03/16 with chief complaint of twitching and anxiety. Subsequently diagnosed with hyponatremia and admitted to critical care unit. CC: "I'm dealing with a lot of issues." HPI: Patient reports that over the past 2 years he's been having increasing issues with depression and anxiety. "I've made some bad decisions lately." His [employer] business has no longer been bringing in as much income some previously had. 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 Additionally, in this position he is expected spends several hours outside in hot weather which contributed to his increased intake of water and in turn his current hyponatremia. He endorses high anxiety and depression and frequent panic attacks he describes as getting overhwhelmed and twitching. "I can't focus, I can't sleep, its terrible." He reports a pattern of anxiety since a childhood. His primary care doctor prescribed him Lexapro in July, however the patient only recently filled the prescription. He has been on this medication before in 2007 when he got depressed after the of his mother and the loss of a job. At that time he had a positive effect. At present he is ambivalent about seeing a psychiatric prescriber but states he will continue to consider it. He currently sees a therapistwhen he is unsure as if has been helpful. PMH: Please see the H&P for a complete listing Hypertension, dyslipidemia, GERD Past Psych History: -Outpatient Started seeing therapist 3 weeks ago, Jim Flores Dawn -Inpatient Denies Family Psych History: Anxiety - Mother and father Substance History Pt reports he currenly consumes 2-3 galsses of wine daily which is an improvement from his previous drinking habits. Reports his drinking previously poorly affected his performance at work and attitude Former smoker, 30 years ago -Treatment None Family Substance History: ETOH - father Social: with two young adult daughters. 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 Abuse/Trauma: Denies. Current Home Psychotropic Medications: Lexapro 5mg daily Current Hospital Psychotropic Medications: None Allergies: Coded Allergies: No Known Allergies (11/03/16) Current Medications: Current Medications Sig/Yosvany Start time Last Medication Dose Route Stop Time Status Admin Acetaminophen 650 MG ONCE ONE 11/03 1415 DC 11/03 PO 11/03 1416 1412 Amlodipine Besylate 0 .STK-MED ONE 11/03 1044 DC PO Amlodipine Besylate 5 MG DAILY 11/03 1009 AC 11/04 PO 0834 Chlordiazepoxide HCl 0 .STK-MED ONE 11/03 1019 DC PO Lisinopril 20 MG DAILY 11/03 1049 AC 11/04 PO 0835 Past History Past Medical History Neurological: twitching EENT: NONE Cardiovascular: hypertension, hyperlipidemia Respiratory: NONE Gastrointestinal: GERD Hepatic: NONE Renal: NONE Musculoskeletal: NONE Psychiatric: anxiety, depression Endocrine: NONE Blood Disorders: NONE Cancer(s): NONE 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 Past Surgical History Surgical History: non-contributory Psychosocial History Strengths/Capabilities: Treatment motivated, supportive family Physical Limitations (Interventions): Current medical illness Psychiatric Treatment History Psych Treatment Psychiatric Treatment Yes (as above) Diagnosis: No formal dx Risk Factors: high anxiety/distress, substance abuse, male Substance Use/Abuse History Drug Use/Abuse Substances Used/Abused Yes (as above) Substance Abuse Treatment Substance Abuse Treatment Past Substance Abuse [place] No Assessment/Plan Mental Status Mental Status Exam: Mental Status Exam Presentation/Appearance: Cooperative with evaluation. Hospital garb. Sitting in bed. Patient experiences twitching frequently Orientation: x4 Sensorium: Awake and alert Eye contact: Appropriate Affect: Constricted, congruent Mood: "Very depressed" Depression: Endorses Anxiety: Endorses Thought Content: - Denies SI/HI, AH/VH, PI. States and also believes they will not kill themselves. - Endorses Hopeless/Helpless Thoughts Thought Process: Perseverative on stressor primarily financial Associations: Appropriate Speech: WNL Judgment: Fair Insight: Fair Cognition: Memory: Grossly intact Attention/Concentration: Grossly intact Fund of Knowledge: Adequate Abstractions: Did not assess MMSE: Did not asses Brief ROS Gait: States is steady but not observed Sleep: Poor Appetite: Poor Energy: Low IADLs/ADLs: Independent Lab Results: Laboratory Tests 11/04/16 0825: Anion Gap 10, Estimated GFR > 60, BUN/Creatinine Ratio 12.5 11/04/16 0300: Uric Acid 3.4 L, Phosphorus 4.2, Cortisol AM Sample 5.2 11/04/16 0300: Anion Gap 12, Estimated GFR > 60, Glucose 98, Calcium 9.3, Phosphorus 4.5, Magnesium 2.0, Total Bilirubin 1.0, AST 28, ALT 43, Albumin 4.6, CBC w Diff NO MAN DIFF REQ, RBC 4.49 L, MCV 92.5, MCH 30.9, RDW 12.5, MPV 7.1 L, Gran % 61.1 , Lymphocytes % 21.4, Monocytes % 15.5 H, Eosinophils % 1.6, Basophils % 0.4, Absolute Granulocytes 4.2, Absolute Lymphocytes 1.5, Absolute Monocytes 1.1 H, Absolute Eosinophils 0.1, Absolute Basophils 0, PUBS MCHC 33.4 11/03/16 2158: Anion Gap 10, Estimated GFR > 60, BUN/Creatinine Ratio 12.5 11/03/16 1810: Anion Gap 12, Estimated GFR > 60, BUN/Creatinine Ratio 11.1 11/03/16 1400: Anion Gap 11, Estimated GFR > 60, BUN/Creatinine Ratio 11.3 11/03/16 1200: Sodium Cancelled, Potassium Cancelled, Chloride Cancelled, Carbon Dioxide Cancelled, Anion Gap Cancelled, BUN Cancelled, Creatinine Cancelled, BUN/ Creatinine Ratio Cancelled 11/03/16 1035: Anion Gap 12, Estimated GFR > 60, BUN/Creatinine Ratio 11.4 11/03/16 0852: Urine Total Volume Cancelled, Ur Sodium 24 Hour Cancelled, Ur Potassium 24 Hour Cancelled 11/03/16 0800: Serum Alcohol < 10.0 11/03/16 0800: Anion Gap 11, Estimated GFR > 60, BUN/Creatinine Ratio 14.3, Glucose 119 H, Serum Osmolality 238 L, Calcium 9.4, Magnesium 1.6, Total Bilirubin 1.4 H, AST 40, ALT 32, Alkaline Phosphatase 67, Troponin I < 0.01, Total Protein 7.4, Albumin 4.8, Globulin 2.6, Albumin/Globulin Ratio 1.8, Vitamin B12 807, Folate 14.6, TSH 0.790, Free T4 1.38, CBC w Diff NO MAN DIFF REQ, RBC 4.46 L, MCV 89.7 , MCH 31.1 H, RDW 12.1, MPV 7.1 L, Gran % 75.4 H, Lymphocytes % 10.4 L, Monocytes % 13.1 H, Eosinophils % 0.7, Basophils % 0.4, Absolute Granulocytes 4.4, Absolute Lymphocytes 0.6 L, Absolute Monocytes 0.8 H, Absolute Eosinophils 0, Absolute Basophils 0, PUBS MCHC 34.7, Urine Opiates Screen < 100.00, Methadone Screen < 40, Barbiturate Screen < 60, Ur Phencyclidine Scrn < 6.00, Amphetamines Screen < 100, U Benzodiazepines Scrn < 85, Urine Cocaine Screen < 50, Urine Cannabis Screen < 5.00, Urine Osmolality 302, Ur Random Creatinine 26.1, Ur Random Sodium 79, Ur Random Potassium 31.4, Fraction Sodium Excret 1.9 H Microbiology 11/03 1110 UPPER RESP: Surveillance Culture - RECD 11/03 0957 GI: Surveillance Culture - COLB Diffential Diagnosis: Generalized anxiety disorder Rule out unspecified depressive disorder versus adjustment disorder Rule out alcohol use disorder Impression: 61-year-old male presents with high anxiety and depression in the context of hyponatremia in several stressors including financial and loss of job. He has been self-medicating with alcohol, 2-3 drinks nightly but does not feel that it is currently a problem. He would benefit from regular meetings with a psychiatric prescriber as well as continued psychotherapy. If mood and anxiety remain extremely poor may consider IOP level of care as well. At present the patient is unsure what he would like to do for treatment. Provisional Treatment Plan: 1. Please continue to hold lexapro as it could potentially contribute to further hyponatremia. We will consider alternate agents with this patient. Mirtazapine would be agent of choice for this patient with low sodium and poor sleep. However, would not reccomend starting new medication today. 2. We will continue to encourage patient to engage with outpatient psychiatric services to see a psychiatric prescriber and consider group therapy. 3. Continue to monitor CIWA. Thank you for including psychiatry in this case we will continue to follow.
--- NOTE | 2016-11-04 11:37 | PN- Nephrology ---
Assessment/Plan Assessment: 1. Hyponatremia secondary to medications - improving at an appropriate rate with symptomatic improvement as well 2. Anxiety Suggestion: 1. Maintain by mouth fluid restriction of 1200 mL per day 2. Continue to monitor electrolytes every 6 hours for now we will 3. Okay for transfer out of ICU Subjective Subjective: Patient slept well and both looks and feels much better today. He still has some twitching but only when he thinks about his financial situation. Serum sodium is slowly rising. Objective Vital Signs and I&Os Vital Signs Date Time Temp Pulse Resp B/P B/P Pulse O2 O2 Flow FiO2 Mean Ox Delivery Rate 11/04 0835 58 120/64 11/04 0834 58 120/64 11/04 0800 98.3 58 18 120/64 11/04 0700 98.3 58 18 120/64 97 Room Air 11/04 0400 98 Room Air 11/04 0000 97.7 58 22 128/78 11/04 0000 99 Room Air 11/04 0000 97.7 58 22 128/78 99 Room Air 11/03 2200 97.0 54 14 113/72 11/03 2000 97.0 60 20 132/78 11/03 2000 98 Room Air 11/03 1600 97.9 68 20 130/80 11/03 1600 97.9 68 20 130/80 99 Room Air 11/03 1600 99 Room Air 11/03 1412 Room Air Room Air 11/03 1400 69 20 142/53 Intake & Output 11/04 1600 11/04 0400 11/03 1600 11/03 0400 11/02 1600 11/02 0400 Intake Total 222 341 350 Output Total 600 1100 2300 Balance -828 -802 -9010 Intake, IV 0 0 150 Intake, Oral 222 341 200 Number 0 0 Bowel Movements Output, Urine 600 1100 2300 Patient 195 lb Weight Weight Estimated Measurement Method Physical Exam: General: Well-developed, white male in NAD Skin: No rash or jaundice HEENT: Conjunctivae pink, sclerae anicteric, mucous membranes moist Neck: Without masses or thyromegaly, no supraclavicular or cervical adenopathy Chest: Clear to P&A Heart: Regular rate and rhythm without S3 or rub Abdomen: Soft and nontender without palpable masses or organomegaly Extremities: Without cyanosis or edema Neuro: No focal findings, no asterixis or myoclonus and no spontaneous myoclonic activity today. He seems much more mentally acute today answering questions quickly and appropriately Current Medications: Current Medications Sig/Yosvany Start time Last Medication Dose Route Stop Time Status Admin Acetaminophen 650 MG ONCE ONE 11/03 1415 DC 11/03 PO 11/03 1416 1412 Amlodipine Besylate 5 MG DAILY 11/03 1009 AC 11/04 PO 0834 Lisinopril 20 MG DAILY 11/03 1049 AC 11/04 PO 0835 Lorazepam 0.5 MG ONCE ONE 11/04 1130 DC 11/04 IV 11/04 1131 1135 Results Pertinent Lab Results: Laboratory Tests 11/04 11/04 11/04 11/03 0825 0300 0300 2158 Chemistry Sodium (137 - 145 mmol/L) 120 L 121 L 118 *L Potassium (3.5 - 5.1 mmol/L) 4.2 3.7 3.6 Chloride (98 - 107 mmol/L) 84 L 85 L 82 L Carbon Dioxide (22 - 30 mmol/L) 25 23 26 Anion Gap (5 - 16) 10 12 10 BUN (9 - 20 mg/dL) 10 10 10 Creatinine (0.7 - 1.2 mg/dL) 0.8 0.8 0.8 Estimated GFR (>60 ml/min) > 60 > 60 > 60 BUN/Creatinine Ratio (7 - 25 %) 12.5 12.5 Glucose (65 - 99 mg/dL) 98 Uric Acid (3.5 - 8.5 mg/dL) 3.4 L Calcium (8.4 - 10.2 mg/dL) 9.3 Phosphorus (2.5 - 4.5 mg/dL) 4.2 4.5 Magnesium (1.6 - 2.3 mg/dL) 2.0 Total Bilirubin (0.2 - 1.3 mg/dL) 1.0 AST (17 - 59 U/L) 28 ALT (21 - 72 U/L) 43 Albumin (3.5 - 5.0 g/dL) 4.6 Cortisol AM Sample (4.46 - 22.7 ug/dL) 5.2 Hematology CBC w Diff NO MAN DIFF REQ WBC (4.8 - 10.8 /CUMM) 6.9 RBC (4.70 - 6.10 /CUMM) 4.49 L Hgb (14.0 - 18.0 G/DL) 13.9 L Hct (42 - 52 %) 41.5 L MCV (80.0 - 94.0 FL) 92.5 MCH (27.0 - 31.0 PG) 30.9 RDW (11.5 - 14.5 %) 12.5 Plt Count (130 - 400 /CUMM) 346 MPV (7.4 - 10.4 FL) 7.1 L Gran % (42.2 - 75.2 %) 61.1 Lymphocytes % (20.5 - 51.1 %) 21.4 Monocytes % (1.7 - 9.3 %) 15.5 H Eosinophils % (0 - 5 %) 1.6 Basophils % (0.0 - 2.0 %) 0.4 Absolute Granulocytes (1.4 - 6.5 /CUMM) 4.2 Absolute Lymphocytes (1.2 - 3.4 /CUMM) 1.5 Absolute Monocytes (0.10 - 0.60 /CUMM) 1.1 H Absolute Eosinophils (0.0 - 0.7 /CUMM) 0.1 Absolute Basophils (0.0 - 0.2 /CUMM) 0 PUBS MCHC (33.0 - 37.0 G/DL) 33.4 11/03 11/03 11/03 11/03 11/03 1810 1400 1200 1035 0852 Chemistry Sodium (137 - 145 mmol/L) 116 *L 115 *L Cancelled 114 *L Potassium (3.5 - 5.1 mmol/L) 3.5 3.7 Cancelled 3.6 Chloride (98 - 107 mmol/L) 80 L 80 L Cancelled 77 L Carbon Dioxide (22 - 30 mmol/L) 24 24 Cancelled 25 Anion Gap (5 - 16) 12 11 Cancelled 12 BUN (9 - 20 mg/dL) 10 9 Cancelled 8 L Creatinine (0.7 - 1.2 mg/dL) 0.9 0.8 Cancelled 0.7 Estimated GFR (>60 ml/min) > 60 > 60 > 60 BUN/Creatinine Ratio (7 - 25 %) 11.1 11.3 Cancelled 11.4 Urines Urine Total Volume Cancelled Ur Sodium 24 Hour Cancelled Ur Potassium 24 Hour Cancelled 11/03 11/03 0800 0800 Chemistry Sodium (137 - 145 mmol/L) 112 *L Potassium (3.5 - 5.1 mmol/L) 4.0 Chloride (98 - 107 mmol/L) 78 L Carbon Dioxide (22 - 30 mmol/L) 23 Anion Gap (5 - 16) 11 BUN (9 - 20 mg/dL) 10 Creatinine (0.7 - 1.2 mg/dL) 0.7 Estimated GFR (>60 ml/min) > 60 BUN/Creatinine Ratio (7 - 25 %) 14.3 Glucose (65 - 99 mg/dL) 119 H Serum Osmolality (285 - 295 MOSM/KG) 238 L Calcium (8.4 - 10.2 mg/dL) 9.4 Magnesium (1.6 - 2.3 mg/dL) 1.6 Total Bilirubin (0.2 - 1.3 mg/dL) 1.4 H AST (17 - 59 U/L) 40 ALT (21 - 72 U/L) 32 Alkaline Phosphatase (< 127 U/L) 67 Troponin I (<0.11 ng/ml) < 0.01 Total Protein (6.3 - 8.2 g/dL) 7.4 Albumin (3.5 - 5.0 g/dL) 4.8 Globulin (1.9 - 4.2 gm/dL) 2.6 Albumin/Globulin Ratio (1.1 - 2.2 %) 1.8 Vitamin B12 (239 - 931 pg/mL) 807 Folate (2.76 - 20.0 ng/mL) 14.6 TSH (0.270 - 4.200 uIU/mL) 0.790 Free T4 (0.78 - 2.44 ng/dL) 1.38 Hematology CBC w Diff NO MAN DIFF REQ WBC (4.8 - 10.8 /CUMM) 5.9 RBC (4.70 - 6.10 /CUMM) 4.46 L Hgb (14.0 - 18.0 G/DL) 13.9 L Hct (42 - 52 %) 40.0 L MCV (80.0 - 94.0 FL) 89.7 MCH (27.0 - 31.0 PG) 31.1 H RDW (11.5 - 14.5 %) 12.1 Plt Count (130 - 400 /CUMM) 322 MPV (7.4 - 10.4 FL) 7.1 L Gran % (42.2 - 75.2 %) 75.4 H Lymphocytes % (20.5 - 51.1 %) 10.4 L Monocytes % (1.7 - 9.3 %) 13.1 H Eosinophils % (0 - 5 %) 0.7 Basophils % (0.0 - 2.0 %) 0.4 Absolute Granulocytes (1.4 - 6.5 /CUMM) 4.4 Absolute Lymphocytes (1.2 - 3.4 /CUMM) 0.6 L Absolute Monocytes (0.10 - 0.60 /CUMM) 0.8 H Absolute Eosinophils (0.0 - 0.7 /CUMM) 0 Absolute Basophils (0.0 - 0.2 /CUMM) 0 PUBS MCHC (33.0 - 37.0 G/DL) 34.7 Toxicology Urine Opiates Screen (>2000 NG/ML) < 100.00 Methadone Screen (>300 NG/ML) < 40 Barbiturate Screen (>200 NG/ML) < 60 Ur Phencyclidine Scrn (>25 NG/ML) < 6.00 Amphetamines Screen (>1000 NG/ML) < 100 U Benzodiazepines Scrn (>200 NG/ML) < 85 Urine Cocaine Screen (>300 NG/ML) < 50 Urine Cannabis Screen (>50 NG/ML) < 5.00 Serum Alcohol (<10 MG/DL) < 10.0 Urines Urine Osmolality (300 - 1000 MOSM/KG) 302 Ur Random Creatinine (mg/dL) 26.1 Ur Random Sodium (30 - 90 mmol/L) 79 Ur Random Potassium (mmol/L) 31.4 Fraction Sodium Excret (<1% %) 1.9 H
--- NOTE | 2016-11-04 15:26 | NUR ---
NURSING NOTE: PATIENT ARRIVED TO FLOOR VIA W/C WITH DISTRIBUTION AND FAMILY FROM ICU. PATIENT A/OX3, STEADY GAIT, DENIES PAIN, CP, SOB AT THIS TIME. FLUID RESTRICTION IN PLACE. SIGN HUNG IN ROOM BY WINDOW FOR PATIENT TO SEE. URINAL IN BATHROOM FOR STRICT I/O'S. VSS 110/70, 85, 98.2, 18, 99% ROOM AIR. ALL BELONGINGS ARRIVED WITH PATIENT FROM ICU AND PLACED UNDER TELEVISION. WILL CONTINUE TO MONITOR.
[2016-11-05] VITALS (7 sets, daily range): BP systolic 106–144; BP diastolic 60–86
[2016-11-05 05:04] LABS: HEMATOCRIT 40.9 % (42-52); MEAN PLATELET VOLUME 7.2 FL (7.4-10.4)
[2016-11-05 05:07] LABS: ABSOLUTE BASOPHIL COUNT 0.1 /CUMM (0.0-0.2); ABSOLUTE EOSINOPHIL COUNT 0.1 /CUMM (0.0-0.7); ABSOLUTE GRANULOCYTE CT 3.2 /CUMM (1.4-6.5); ABSOLUTE LYMPH COUNT 1.1 /CUMM (1.2-3.4); ABSOLUTE MONOCYTE COUNT 0.8 /CUMM (0.10-0.60); BASOPHIL % 1.1 % (0.0-2.0); EOSINOPHIL % 2.2 % (0-5); GRANULOCYTE % 60.1 % (42.2-75.2); MEAN CORPUSCULAR HGB CONC 33.7 G/DL (33.0-37.0); MEAN CORPUSCULAR VOLUME 91.9 FL (80.0-94.0); PLATELET COUNT 316 /CUMM (130-400); RBC DISTRIBUTION WIDTH 12.6 % (11.5-14.5); RED BLOOD CELL CT 4.45 /CUMM (4.70-6.10); WHITE BLOOD CELL COUNT 5.3 /CUMM (4.8-10.8)
--- NOTE | 2016-11-05 08:19 | PN- Housestaff ---
Subjective Follow-up For: #Euvolemic hypotonic hyponatremia; likely SIADH versus a beer potomania versus polydipsia #History of anxiety/depression #Excessive drinking #Hypertension Complaints: pain scale (0-10) Subjective: Patient was seen and examined this morning. He is alert awake and oriented times place and person. No acute overnight events. He was transferred from ICU to general medicine floor for further monitoring of hyponatremia. Patient continues to report bilateral shoulder TWITCHING. He was very anxious this morning about the financial issues, willing to talk to medical social worker. Denies any dizziness, lightheadedness, confusion, generalized weakness, tiredness or fatigue. Offers no other complaints Vitals were stable. Afebrile, heart rate 59, respiratory rate 20, blood pressure 130/70, saturating at 99 on room air Review of Systems Constitutional: Reports: no symptoms. Objective Last 24 Hrs of Vital Signs/I&O Vital Signs Date Time Temp Pulse Resp B/P B/P Pulse O2 O2 Flow FiO2 Mean Ox Delivery Rate 11/05 1134 82 22 136/80 11/05 0908 84 132/84 11/05 0907 84 132/84 11/05 0600 97.6 59 20 130/70 11/05 0600 98.5 60 20 144/86 99 Room Air 11/05 0400 97.6 59 20 130/70 11/05 0200 98.2 56 20 126/76 11/05 0200 97.6 59 20 130/70 96 Room Air 11/05 0000 98.2 56 20 126/76 11/04 2232 98.2 56 20 126/76 95 Room Air 11/04 2200 98.2 85 18 110/70 11/04 2000 98.2 85 18 110/70 11/04 1440 98.2 85 18 110/70 99 Room Air Intake & Output 11/05 1600 11/05 0800 11/05 0000 Intake Total 0 390 Output Total 650 300 Balance -650 90 Intake, Oral 0 390 Output, Urine 650 300 Physical Exam General Appearance: Alert, Oriented X3, Cooperative, No Acute Distress Skin: No Rashes, No Breakdown HEENT: Atraumatic, PERRLA, EOMI, Mucous Membr. moist/pink Neck: Supple, No JVD Lymphatic: Cervical nl Cardiovascular: Normal S1, Normal S2 Lungs: Normal Air Movement Abdomen: Normal Bowel Sounds, Soft, No Tenderness Neurological: Strength at 5/5 X4 Ext, Sensation Intact, Cranial Nerves 3-12 NL, shoulder twitching Extremities: No Clubbing, No Cyanosis, No Edema Vascular: Pulses Symmetrical Current Medications: Current Medications Sig/Yosvany Start time Last Medication Dose Route Stop Time Status Admin Amlodipine Besylate 5 MG DAILY 11/03 1009 AC 11/05 PO 0908 Enoxaparin Sodium 40 MG DAILY 11/04 1146 AC 11/05 SC 0908 Folic Acid 1 MG DAILY 11/05 1045 AC 11/05 PO 1140 Folic Acid 1 MG DAILY 11/05 1000 DC PO 11/07 1001 Lisinopril 20 MG DAILY 11/03 1049 AC 11/05 PO 0907 Lorazepam 0 Q1P PRN 11/05 1045 AC 11/05 IV 1139 Lorazepam 2 MG Q2P PRN 11/05 0915 DC IV Lorazepam 1 MG Q2P PRN 11/05 0915 DC IV Melatonin 10 MG AT BEDTIME 11/05 2200 AC PO Multivitamins 1 TAB DAILY 11/05 1045 AC 11/05 PO 1140 Multivitamins 1 TAB DAILY 11/05 1000 DC PO Omeprazole 40 MG DAILY AC 11/04 1147 AC PO Thiamine HCl 100 MG DAILY 11/05 1045 AC 11/05 PO 1140 Thiamine HCl 100 MG DAILY 11/05 1000 DC PO 11/07 1001 Last 24 Hrs of Lab/Jaime Results Last 24 Hrs of Labs/Mics: Laboratory Tests 11/05/16 0830: Anion Gap 13, Estimated GFR > 60, BUN/Creatinine Ratio 14.4 11/05/16 0440: Anion Gap 8, Estimated GFR > 60, BUN/Creatinine Ratio 17.5, Phosphorus 3.9, Magnesium 2.1, CBC w Diff NO MAN DIFF REQ, RBC 4.45 L, MCV 91.9, MCH 31.0, RDW 12.6, MPV 7.2 L, Gran % 60.1, Lymphocytes % 20.9, Monocytes % 15.7 H, Eosinophils % 2.2, Basophils % 1.1, Absolute Granulocytes 3.2, Absolute Lymphocytes 1.1 L, Absolute Monocytes 0.8 H, Absolute Eosinophils 0.1, Absolute Basophils 0.1, PUBS MCHC 33.7 11/04/16 2225: Anion Gap 10, Estimated GFR > 60, BUN/Creatinine Ratio 18.9 11/04/16 1837: Anion Gap 12, Estimated GFR > 60, BUN/Creatinine Ratio 16.4 Assessment/Plan Assessment: This is a 61-year-old male with past medical history significant for hypertension, dyslipidemia, GERD, anxiety, panic attacks, depression admitted to the [facility] ICU for generalized twitching with euvolemic hypotonic hyponatremia in the setting of excessive drinking including beer, increased free water intake (approximately 2 L per day), being on SSRIs and hydrochlorothiazide. Admission vitals - afebrile, heart rate 99, respiratory rate 22, blood pressure 183/90, saturating at 97 on room air. CBC was normal. Sodium 112 on admission BUN and creatinine were normal. Urine osmolality and lites were checked in the ED- NORMAL Urine toxicology-negative SR , Rate 80, No ST-T wave abnormalities, QTC 420. Problem list #Euvolemic hypotonic hyponatremia; likely SIADH versus a beer potomania versus polydipsia #History of anxiety/depression #Excessive drinking #Hypertension #GERD #Hypertension #Hyperlipidemia Euvolemic hypotonic hyponatremia; Most likely drug-induced in the setting of long-term treatment with hydrochlorothiazide and more recently with an SSRI (escitalopram) versus excessive drinking of water 2 L per day versus excessive drinking of beer. * Patient was admitted to ICU for management of euvolemic hyponatremia, transferred to general medicine floor 11/04/2016 once patient was stable * Monitor vitals every shift * He was started on fluid restriction 1400 mL per day * Sodium corrected from 112 to 128 over 48 hours * We will change fluids restriction from 1400 to 1000 mL per day for now * We will repeat the BEP every day * Our goal is a slow rise in serum sodium of approximately 8 mEq in 24 hours . * Avoid spontaneous pontine Demylination from rapid sodium correction * Should serum sodium rise more quickly than that, then we will need to infuse D5W and/or increase his by mouth fluid allotment. Hypertension Will hold DIABETES EDUCATOR hydrochlorothiazide. Will continue other home medications-amlodipine 5 mg and lisinopril 20 mg. * Patient was hypertensive to 170s over 100 upon admission and received IV labetalol in the ED, monitorING blood pressure closely. * Blood pressure remained stable Alcohol withdrawal Patient drinks approximately 3 glasses of wine every day and also drinks beer almost every day. Denies any HI or SI. * Denies any anxiety, tremors, hallucinations * Denies any withdrawal seizures * Monitor on CIWA * Low-dose Ativan as per CIWA protocol * Multivitamin * Thiamine * Folate Anxiety/muscle twitching/depression Per patient, twitching started 3 months ago and gradually worsened. He reports sudden movements in his shoulder girdle which last the whole day for the most part and continue during night for this reason he is only able to sleep about an hour every night. * Psychiatrist on board * cupola worker on board * Educated patient on possible treatment plans including intensive outpatient treatment including dual diagnosis and mental health as well as outpatient treatment. * Discussed medication options for treatment of anxiety and depression both long and short term. * He states that lorazepam was helpful for him during this hospitalization for anxiety. * Will continue to hold lexapro as it could potentially contribute to further hyponatremia. * melatonin 10mg qhs for sleep. GERD Continue omeprazole hyperlipidemia Continue atorvastatin Heart healthy diet with 1000 ml fluids restriction DVT PPx mechanical and pharmacological Full code Pain pathway Problem List: 1. Hyponatremia 2. Anxiety 3. Alcohol abuse Pain Ratin Pain Location: n/a Pain Goal: Remain pain free Pain Plan: Tylenol Tomorrow's Labs & Rationales: BEP in the setting of hyponatremia
--- NOTE | 2016-11-05 10:43 | Patient Discharge Instructions ---
Discharge Instructions General Discharge Information You were seen/treated for: Low sodium You had these procedures: none Special Instructions: please follow up with your PCP within one week of discharge. please follow up with your BIOINFORMATICS TEAM MEMBER within one week of discharge. Changes have been made to your medications, please take a note and continue to take your medications as prescribed. dont take hydrochlorothiazide Don't take Lexapro take gabapentin as directed for anxiety IOP intake appointment scheduled for next available appointment. "[facility] intake appointment scheduled for 1:45 PM on Thursday11/14/[address] [place] [address]. Call [phone] with any questions." please check BEP AND CC REPORTS TO PCP AND in one weak. script provided for BEP Diet Continue normal diet: Yes Activity Full Activity/No Limits: Yes Acute Coronary Syndrome Inclusion Criteria At DC or during hospital stay patient has or had the following: ACS DIAGNOSIS No Discharge Core Measures Meds if any: Prescribed or Continued at Discharge Meds if any: NOT Prescribed or Continued at Discharge Congestive Heart Failure Inclusion Criteria At DC or during hospital stay patient has or had the following: CHF DIAGNOSIS No Discharge Core Measures Meds if any: Prescribed or Continued at Discharge Meds if any: NOT Prescribed or Continued at Discharge Cerebrovascular accident Inclusion Criteria At DC or during hospital stay patient has or had the following: CVA/TIA Diagnosis No Discharge Core Measures Meds if any: Prescribed or Continued at Discharge Meds if any: NOT Prescribed or Continued at Discharge Venous thromboembolism Inclusion Criteria VTE Diagnosis No VTE Type NONE VTE Confirmed by (Test) NONE Discharge Core Measures - Per Current guidelines, there needs to be overlap - treatment for the first 5 days of Warfarin therapy. - If discharged on Warfarin prior to 5 days of - overlap therapy, the patient will need to be - assessed for post discharge needs including - *Post discharge parental anticoagulation - *Warfarin and/or parental anticoagulation education - *Follow up date to check INR post discharge At least 5 days overlap therapy as Inpatient No Meds if any: Prescribed or Continued at Discharge Note: Overlap Therapy is Warfarin and Anticoagulant Meds if any: NOT Prescribed or Continued at Discharge
--- NOTE | 2016-11-05 10:57 | PN- Psychiatry ---
Assessment/Plan Impression: Identifying Info: 61-year-old male presents to [facility] emergency department on 11/03/16 with chief complaint of twitching and anxiety. Subsequently diagnosed with hyponatremia and admitted to critical care unit now on general medicine. No formal psych hx. SUBJECTIVE Part of interview completed with Deborah Orozco LCSW. Patient states "I have a very serious problem." Educated patient on possible treatment plans including intensive outpatient treatment including dual diagnosis and mental health as well as outpatient treatment. At present he is primarily concerned about cost but is agreeable to help. Discussed medication options for treatment of anxiety and depression both long and short term. He states that lorazepam was helpful for him during this hospitalization for anxiety. Brief ROS Gait: Steady Sleep: Poor Appetite: Did not assess OBJECTIVE Mental Status Exam Presentation/Appearance: Cooperative with evaluation. Hospital garb. Sitting in bed. Patient experiences twitching frequently. Appears quite anxious. Orientation: x4 Sensorium: Awake and alert Eye contact: Appropriate Affect: Constricted, congruent Mood: "Anxious... worried" Depression: Endorses Anxiety: Endorses Thought Content: - Denies SI/HI, AH/VH, PI. States and also believes they will not kill themselves. - Endorses Hopeless/Helpless Thoughts Thought Process: Perseverative on stressors primarily financial Associations: Appropriate Speech: WNL Judgment: Fair Insight: Fair Cognition: Memory: Grossly intact Attention/Concentration: Grossly intact Fund of Knowledge: Adequate Abstractions: Did not assess MMSE: Did not asses Discussed patient's insurance with desktop support associate at [facility] try to find out what his copayment would be. They stated they take his insurance but she would have to call his carrier to find out what his benefit is for [facility]. Discussed options for potential short-term management of anxiety during hospitalization with inpatient pharmacy. Recommended gabapentin off label or lorazepam. ASSESSMENT 61-year-old male presents with high anxiety and depression in the context of hyponatremia and several stressors primarily financial. He has been self-medicating with alcohol, 2-3 drinks nightly. He is agreeable to and would benefit from [facility] level of care but is concerned about cost. Diagnosis Generalized anxiety disorder Unspecified depressive disorder Alcohol use disorder A total of 60 minutes was spent with the patient with more than 50% of the time spent in counseling and/or coordination of care. Suggestion: 1. Please continue to hold lexapro as it could potentially contribute to further hyponatremia. We will consider alternate agents with this patient. Mirtazapine would be agent of choice for this patient with low sodium and poor sleep. However, would not recommend starting this medication today. 2. Plan to meet with today to discuss tx options. 3. Continue to monitor CIWA. 4. Please continue lorazepam and medicate anxiety appropriately. 5. Please start melatonin 10mg qhs for sleep. Thank you for including psychiatry in this case we will continue to follow. Subjective Subjective: as above Objective Last 24 Hrs of Vital Signs/I&O Current Medications Sig/Yosvany Start time Last Medication Dose Route Stop Time Status Admin Amlodipine Besylate 5 MG DAILY 11/03 1009 AC 11/05 PO 0908 Enoxaparin Sodium 40 MG DAILY 11/04 1146 AC 11/05 SC 0908 Folic Acid 1 MG DAILY 11/05 1045 UNVr PO Folic Acid 1 MG DAILY 11/05 1000 AC PO 11/07 1001 Lisinopril 20 MG DAILY 11/03 1049 AC 11/05 PO 0907 Lorazepam 0 Q1P PRN 11/05 1045 UNVr IV Lorazepam 2 MG Q2P PRN 11/05 0915 AC IV Lorazepam 1 MG Q2P PRN 11/05 0915 AC IV Lorazepam 0.5 MG ONCE ONE 11/04 1130 DC 11/04 IV 11/04 1131 1135 Multivitamins 1 TAB DAILY 11/05 1045 UNVr PO Multivitamins 1 TAB DAILY 11/05 1000 AC PO Omeprazole 40 MG DAILY AC 11/04 1147 AC PO Thiamine HCl 100 MG DAILY 11/05 1045 UNVr PO Thiamine HCl 100 MG DAILY 11/05 1000 AC PO 11/07 1001 Laboratory Tests 11/05/16 0830: Anion Gap 13, Estimated GFR > 60, BUN/Creatinine Ratio 14.4 11/05/16 0440: Anion Gap 8, Estimated GFR > 60, BUN/Creatinine Ratio 17.5, Phosphorus 3.9, Magnesium 2.1, CBC w Diff NO MAN DIFF REQ, RBC 4.45 L, MCV 91.9, MCH 31.0, RDW 12.6, MPV 7.2 L, Gran % 60.1, Lymphocytes % 20.9, Monocytes % 15.7 H, Eosinophils % 2.2, Basophils % 1.1, Absolute Granulocytes 3.2, Absolute Lymphocytes 1.1 L, Absolute Monocytes 0.8 H, Absolute Eosinophils 0.1, Absolute Basophils 0.1, PUBS MCHC 33.7 11/04/16 2225: Anion Gap 10, Estimated GFR > 60, BUN/Creatinine Ratio 18.9 11/04/16 1837: Anion Gap 12, Estimated GFR > 60, BUN/Creatinine Ratio 16.4 11/04/16 1200: Anion Gap 12, Estimated GFR > 60, BUN/Creatinine Ratio 13.3 Vital Signs Date Time Temp Pulse Resp B/P B/P Pulse O2 O2 Flow FiO2 Mean Ox Delivery Rate 11/05 0908 84 132/84 11/05 0907 84 132/84 11/05 0600 97.6 59 20 130/70 11/05 0600 98.5 60 20 144/86 99 Room Air 11/05 0400 97.6 59 20 130/70 11/05 0200 98.2 56 20 126/76 11/05 0200 97.6 59 20 130/70 96 Room Air 11/05 0000 98.2 56 20 126/76 11/04 2232 98.2 56 20 126/76 95 Room Air 11/04 2200 98.2 85 18 110/70 11/04 2000 98.2 85 18 110/70 11/04 1440 98.2 85 18 110/70 99 Room Air Intake & Output 11/05 1600 11/05 0800 11/05 0000 Intake Total 0 390 Output Total 650 300 Balance -650 90 Intake, Oral 0 390 Output, Urine 650 300
--- NOTE | 2016-11-05 11:07 | PN- Nephrology ---
Assessment/Plan Assessment: 1. Hyponatremia secondary to medications - improving at an appropriate rate with symptomatic improvement as well 2. Anxiety Suggestion: 1. Maintain by mouth fluid restriction of 1000 mL per day 2. Continue to monitor electrolytes but can decrease to daily Subjective Subjective: Patient still having some twitching but in general has been doing well. Serum sodium continues to drift upward and his other electrolytes are acceptable including calcium, phosphorus and magnesium levels. He is also being evaluated from a psychosocial standpoint. Objective Vital Signs and I&Os Vital Signs Date Time Temp Pulse Resp B/P B/P Pulse O2 O2 Flow FiO2 Mean Ox Delivery Rate 11/05 0908 84 132/84 11/05 0907 84 132/84 11/05 0600 97.6 59 20 130/70 11/05 0600 98.5 60 20 144/86 99 Room Air 11/05 0400 97.6 59 20 130/70 11/05 0200 98.2 56 20 126/76 11/05 0200 97.6 59 20 130/70 96 Room Air 11/05 0000 98.2 56 20 126/76 11/04 2232 98.2 56 20 126/76 95 Room Air 11/04 2200 98.2 85 18 110/70 11/04 2000 98.2 85 18 110/70 11/04 1440 98.2 85 18 110/70 99 Room Air Intake & Output 11/05 1600 11/05 0400 11/04 1600 11/04 0400 11/03 1600 11/03 0400 Intake Total 0 390 952 341 350 Output Total 328 218 5262 1100 2300 Balance -650 90 -73 -759 -1950 Intake, IV 10 0 150 Intake, Oral 0 390 942 341 200 Number 0 0 Bowel Movements Output, Urine 520 588 7588 1100 2300 Patient 195 lb Weight Weight Estimated Measurement Method Physical Exam: General: Well-developed, white male in NAD Skin: No rash or jaundice HEENT: Conjunctivae pink, sclerae anicteric, mucous membranes moist Neck: Without masses or thyromegaly, no supraclavicular or cervical adenopathy Chest: Clear to P&A Heart: Regular rate and rhythm without S3 or rub Abdomen: Soft and nontender without palpable masses or organomegaly Extremities: Without cyanosis or edema Neuro: No focal findings, no asterixis or myoclonus but still with some spontaneous myoclonic activity today. Results Pertinent Lab Results: Laboratory Tests 11/05 11/05 11/04 11/04 0830 0274 3809 0922 Chemistry Sodium (137 - 145 mmol/L) 128 L 126 L 121 L 121 L Potassium (3.5 - 5.1 mmol/L) 4.3 3.8 3.9 4.0 Chloride (98 - 107 mmol/L) 87 L 90 L 86 L 84 L Carbon Dioxide (22 - 30 mmol/L) 28 28 25 25 Anion Gap (5 - 16) 13 8 10 12 BUN (9 - 20 mg/dL) 13 14 17 18 Creatinine (0.7 - 1.2 mg/dL) 0.9 0.8 0.9 1.1 Estimated GFR (>60 ml/min) > 60 > 60 > 60 > 60 BUN/Creatinine Ratio (7 - 25 %) 14.4 17.5 18.9 16.4 Phosphorus (2.5 - 4.5 mg/dL) 3.9 Magnesium (1.6 - 2.3 mg/dL) 2.1 Hematology CBC w Diff NO MAN DIFF REQ WBC (4.8 - 10.8 /CUMM) 5.3 RBC (4.70 - 6.10 /CUMM) 4.45 L Hgb (14.0 - 18.0 G/DL) 13.8 L Hct (42 - 52 %) 40.9 L MCV (80.0 - 94.0 FL) 91.9 MCH (27.0 - 31.0 PG) 31.0 RDW (11.5 - 14.5 %) 12.6 Plt Count (130 - 400 /CUMM) 316 MPV (7.4 - 10.4 FL) 7.2 L Gran % (42.2 - 75.2 %) 60.1 Lymphocytes % (20.5 - 51.1 %) 20.9 Monocytes % (1.7 - 9.3 %) 15.7 H Eosinophils % (0 - 5 %) 2.2 Basophils % (0.0 - 2.0 %) 1.1 Absolute Granulocytes (1.4 - 6.5 /CUMM) 3.2 Absolute Lymphocytes (1.2 - 3.4 /CUMM) 1.1 L Absolute Monocytes (0.10 - 0.60 /CUMM) 0.8 H Absolute Eosinophils (0.0 - 0.7 /CUMM) 0.1 Absolute Basophils (0.0 - 0.2 /CUMM) 0.1 PUBS MCHC (33.0 - 37.0 G/DL) 33.7 11/04 11/04 11/04 11/04 1200 0825 0300 0300 Chemistry Sodium (137 - 145 mmol/L) 122 L 120 L 121 L Potassium (3.5 - 5.1 mmol/L) 4.1 4.2 3.7 Chloride (98 - 107 mmol/L) 84 L 84 L 85 L Carbon Dioxide (22 - 30 mmol/L) 26 25 23 Anion Gap (5 - 16) 12 10 12 BUN (9 - 20 mg/dL) 12 10 10 Creatinine (0.7 - 1.2 mg/dL) 0.9 0.8 0.8 Estimated GFR (>60 ml/min) > 60 > 60 > 60 BUN/Creatinine Ratio (7 - 25 %) 13.3 12.5 Glucose (65 - 99 mg/dL) 98 Uric Acid (3.5 - 8.5 mg/dL) 3.4 L Calcium (8.4 - 10.2 mg/dL) 9.3 Phosphorus (2.5 - 4.5 mg/dL) 4.2 4.5 Magnesium (1.6 - 2.3 mg/dL) 2.0 Total Bilirubin (0.2 - 1.3 mg/dL) 1.0 AST (17 - 59 U/L) 28 ALT (21 - 72 U/L) 43 Albumin (3.5 - 5.0 g/dL) 4.6 Cortisol AM Sample (4.46 - 22.7 ug/dL) 5.2 Hematology CBC w Diff NO MAN DIFF REQ WBC (4.8 - 10.8 /CUMM) 6.9 RBC (4.70 - 6.10 /CUMM) 4.49 L Hgb (14.0 - 18.0 G/DL) 13.9 L Hct (42 - 52 %) 41.5 L MCV (80.0 - 94.0 FL) 92.5 MCH (27.0 - 31.0 PG) 30.9 RDW (11.5 - 14.5 %) 12.5 Plt Count (130 - 400 /CUMM) 346 MPV (7.4 - 10.4 FL) 7.1 L Gran % (42.2 - 75.2 %) 61.1 Lymphocytes % (20.5 - 51.1 %) 21.4 Monocytes % (1.7 - 9.3 %) 15.5 H Eosinophils % (0 - 5 %) 1.6 Basophils % (0.0 - 2.0 %) 0.4 Absolute Granulocytes (1.4 - 6.5 /CUMM) 4.2 Absolute Lymphocytes (1.2 - 3.4 /CUMM) 1.5 Absolute Monocytes (0.10 - 0.60 /CUMM) 1.1 H Absolute Eosinophils (0.0 - 0.7 /CUMM) 0.1 Absolute Basophils (0.0 - 0.2 /CUMM) 0 PUBS MCHC (33.0 - 37.0 G/DL) 33.4 11/03 11/03 11/03 11/03 11/03 2158 1810 1400 1200 1035 Chemistry Sodium (137 - 145 mmol/L) 118 *L 116 *L 115 *L Cancelled 114 *L Potassium (3.5 - 5.1 mmol/L) 3.6 3.5 3.7 Cancelled 3.6 Chloride (98 - 107 mmol/L) 82 L 80 L 80 L Cancelled 77 L Carbon Dioxide (22 - 30 mmol/L) 26 24 24 Cancelled 25 Anion Gap (5 - 16) 10 12 11 Cancelled 12 BUN (9 - 20 mg/dL) 10 10 9 Cancelled 8 L Creatinine (0.7 - 1.2 mg/dL) 0.8 0.9 0.8 Cancelled 0.7 Estimated GFR (>60 ml/min) > 60 > 60 > 60 > 60 BUN/Creatinine Ratio (7 - 25 %) 12.5 11.1 11.3 Cancelled 11.4 11/03 11/03 11/03 0852 0800 0800 Chemistry Sodium (137 - 145 mmol/L) 112 *L Potassium (3.5 - 5.1 mmol/L) 4.0 Chloride (98 - 107 mmol/L) 78 L Carbon Dioxide (22 - 30 mmol/L) 23 Anion Gap (5 - 16) 11 BUN (9 - 20 mg/dL) 10 Creatinine (0.7 - 1.2 mg/dL) 0.7 Estimated GFR (>60 ml/min) > 60 BUN/Creatinine Ratio (7 - 25 %) 14.3 Glucose (65 - 99 mg/dL) 119 H Serum Osmolality (285 - 295 MOSM/KG) 238 L Calcium (8.4 - 10.2 mg/dL) 9.4 Magnesium (1.6 - 2.3 mg/dL) 1.6 Total Bilirubin (0.2 - 1.3 mg/dL) 1.4 H AST (17 - 59 U/L) 40 ALT (21 - 72 U/L) 32 Alkaline Phosphatase (< 127 U/L) 67 Troponin I (<0.11 ng/ml) < 0.01 Total Protein (6.3 - 8.2 g/dL) 7.4 Albumin (3.5 - 5.0 g/dL) 4.8 Globulin (1.9 - 4.2 gm/dL) 2.6 Albumin/Globulin Ratio (1.1 - 2.2 %) 1.8 Vitamin B12 (239 - 931 pg/mL) 807 Folate (2.76 - 20.0 ng/mL) 14.6 TSH (0.270 - 4.200 uIU/mL) 0.790 Free T4 (0.78 - 2.44 ng/dL) 1.38 Hematology CBC w Diff NO MAN DIFF REQ WBC (4.8 - 10.8 /CUMM) 5.9 RBC (4.70 - 6.10 /CUMM) 4.46 L Hgb (14.0 - 18.0 G/DL) 13.9 L Hct (42 - 52 %) 40.0 L MCV (80.0 - 94.0 FL) 89.7 MCH (27.0 - 31.0 PG) 31.1 H RDW (11.5 - 14.5 %) 12.1 Plt Count (130 - 400 /CUMM) 322 MPV (7.4 - 10.4 FL) 7.1 L Gran % (42.2 - 75.2 %) 75.4 H Lymphocytes % (20.5 - 51.1 %) 10.4 L Monocytes % (1.7 - 9.3 %) 13.1 H Eosinophils % (0 - 5 %) 0.7 Basophils % (0.0 - 2.0 %) 0.4 Absolute Granulocytes (1.4 - 6.5 /CUMM) 4.4 Absolute Lymphocytes (1.2 - 3.4 /CUMM) 0.6 L Absolute Monocytes (0.10 - 0.60 /CUMM) 0.8 H Absolute Eosinophils (0.0 - 0.7 /CUMM) 0 Absolute Basophils (0.0 - 0.2 /CUMM) 0 PUBS MCHC (33.0 - 37.0 G/DL) 34.7 Toxicology Urine Opiates Screen (>2000 NG/ML) < 100.00 Methadone Screen (>300 NG/ML) < 40 Barbiturate Screen (>200 NG/ML) < 60 Ur Phencyclidine Scrn (>25 NG/ML) < 6.00 Amphetamines Screen (>1000 NG/ML) < 100 U Benzodiazepines Scrn (>200 NG/ML) < 85 Urine Cocaine Screen (>300 NG/ML) < 50 Urine Cannabis Screen (>50 NG/ML) < 5.00 Serum Alcohol (<10 MG/DL) < 10.0 Urines Urine Osmolality (300 - 1000 MOSM/KG) 302 Ur Random Creatinine (mg/dL) 26.1 Ur Random Sodium (30 - 90 mmol/L) 79 Ur Random Potassium (mmol/L) 31.4 Urine Total Volume Cancelled Ur Sodium 24 Hour Cancelled Fraction Sodium Excret (<1% %) 1.9 H Ur Potassium 24 Hour Cancelled
--- NOTE | 2016-11-05 13:36 | PN- Att Addend ---
Attending Addendum Attending Brief Note Patient seen and examined, feeling anxious. He was transferred out of ICU yesterday. Patient was originally admitted with hyponatremia likely secondary to multiple factors including polydipsia, being on diuretics, on Lexapro as well as drinking alcohol. Still has some twiching whihc is likely 2/2 to anxiety as Na is nicely coming up. Vital Signs Date Time Temp Pulse Resp B/P B/P Pulse O2 O2 Flow FiO2 Mean Ox Delivery Rate 11/05 1134 82 22 136/80 11/05 0908 84 132/84 11/05 0907 84 132/84 11/05 0600 97.6 59 20 130/70 11/05 0600 98.5 60 20 144/86 99 Room Air 11/05 0400 97.6 59 20 130/70 11/05 0200 98.2 56 20 126/76 11/05 0200 97.6 59 20 130/70 96 Room Air 11/05 0000 98.2 56 20 126/76 11/04 2232 98.2 56 20 126/76 95 Room Air 11/04 2200 98.2 85 18 110/70 11/04 2000 98.2 85 18 110/70 11/04 1440 98.2 85 18 110/70 99 Room Air on exam; aox3, anxious. cv; s1,s2, rrr resp; clear abd; soft, nt, bs+ ext; no edema Laboratory Tests 11/05 11/05 11/04 11/04 0830 0440 2225 1837 Chemistry Sodium (137 - 145 mmol/L) 128 L 126 L 121 L 121 L Potassium (3.5 - 5.1 mmol/L) 4.3 3.8 3.9 4.0 Chloride (98 - 107 mmol/L) 87 L 90 L 86 L 84 L Carbon Dioxide (22 - 30 mmol/L) 28 28 25 25 Anion Gap (5 - 16) 13 8 10 12 BUN (9 - 20 mg/dL) 13 14 17 18 Creatinine (0.7 - 1.2 mg/dL) 0.9 0.8 0.9 1.1 Estimated GFR (>60 ml/min) > 60 > 60 > 60 > 60 BUN/Creatinine Ratio (7 - 25 %) 14.4 17.5 18.9 16.4 Phosphorus (2.5 - 4.5 mg/dL) 3.9 Magnesium (1.6 - 2.3 mg/dL) 2.1 Hematology CBC w Diff NO MAN DIFF REQ WBC (4.8 - 10.8 /CUMM) 5.3 RBC (4.70 - 6.10 /CUMM) 4.45 L Hgb (14.0 - 18.0 G/DL) 13.8 L Hct (42 - 52 %) 40.9 L MCV (80.0 - 94.0 FL) 91.9 MCH (27.0 - 31.0 PG) 31.0 RDW (11.5 - 14.5 %) 12.6 Plt Count (130 - 400 /CUMM) 316 MPV (7.4 - 10.4 FL) 7.2 L Gran % (42.2 - 75.2 %) 60.1 Lymphocytes % (20.5 - 51.1 %) 20.9 Monocytes % (1.7 - 9.3 %) 15.7 H Eosinophils % (0 - 5 %) 2.2 Basophils % (0.0 - 2.0 %) 1.1 Absolute Granulocytes (1.4 - 6.5 /CUMM) 3.2 Absolute Lymphocytes (1.2 - 3.4 /CUMM) 1.1 L Absolute Monocytes (0.10 - 0.60 /CUMM) 0.8 H Absolute Eosinophils (0.0 - 0.7 /CUMM) 0.1 Absolute Basophils (0.0 - 0.2 /CUMM) 0.1 PUBS MCHC (33.0 - 37.0 G/DL) 33.7 A/P; 61-year-old male with past medical history significant for anxiety, alcohol use, hypertension who was originally admitted with hyponatremia and alcohol use. Hyponatremia is improving on fluid restriction. As mentioned above multiple factors must have contributed to his hyponatremia. Patient should be on CIWA watch and when necessary Ativan. Please start the patient on multivitamin, folate and thiamine. Appreciate nephrology input. We'll check a daily BP check Monitor sodium. Patient has been followed by psych. DVT prophylaxis: Lovenox. If continues to improve possible discharge tomorrow.
--- NOTE | 2016-11-05 13:59 | NUR ---
Referral received on 11/03/16 via electronic order department supervisor. This patient is a 61 year old man, admitted to the hospital with hyponatremia. Consult received for "ETOH Dependence". Patient originally admitted to [facility]. Transferred to [facility] yesterday. I met with patient briefly this am along with psychiatric [place] H[place] Gomez. 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 While he reports his is supportive, she also gave him an ultimatum related to his drinking (which he minimizes as "2 glasses of wine with dinner; sometimes 3". He is in agreement with outpatient treatment; IOP vs outpatient but very concerned about copay obligations. He does not have his insurance card with him. With his permisson I have called his who will bring it in later today, and will call insurance company to confirm copay. Once this information is received, we will assist patient in securing appropriate appointment. FOllow.
[2016-11-05] MEDS ORDERED: FOLIC ACID1 M1 PO (15:58)
[2016-11-05] MEDS ORDERED: ONE DAILY MULT1 EAC2 PO (15:58)
[2016-11-05] MEDS ORDERED: MELATONIN5 M7 PO (15:58)
[2016-11-05] MEDS ORDERED: VITAMIN B-1100 MG PO (15:58)
[2016-11-06] VITALS: BP 122/72
[2016-11-06 06:21] VITALS: BP 116/64
--- NOTE | 2016-11-06 08:21 | PN- Housestaff ---
YVAN LY 11/06/16 0821: Subjective Follow-up For: #Euvolemic hypotonic hyponatremia; likely SIADH versus a beer potomania versus polydipsia #History of anxiety/depression #Excessive drinking #Hypertension Complaints: pain scale (0-10) Subjective: Patient was seen and examined this morning. He is alert awake and oriented times place and person. No acute overnight events. He was transferred from ICU to general medicine floor for further monitoring of hyponatremia. Patient continues to report bilateral shoulder TWITCHING. He was very anxious this morning about the financial issues, wants to talk to social work therapist. Denies any dizziness, lightheadedness, confusion, generalized weakness, tiredness or fatigue. Offers no other complaints Vitals were stable. Afebrile, heart rate 59, respiratory rate 20, blood pressure 130/70, saturating at 99 on room air Review of Systems Constitutional: Reports: no symptoms. Objective Last 24 Hrs of Vital Signs/I&O Vital Signs Date Time Temp Pulse Resp B/P B/P Pulse O2 O2 Flow FiO2 Mean Ox Delivery Rate 11/06 0850 62 118/62 11/06 0850 62 118/62 11/06 0621 98.3 57 20 116/64 95 Room Air 11/06 0000 98.0 55 20 122/72 11/05 2248 98.0 55 20 122/72 94 Room Air Intake & Output 11/06 1600 11/06 0800 11/06 0000 Intake Total 110 200 Output Total 400 300 Balance -290 -100 Intake, IV 10 Intake, Oral 100 200 Number 0 Bowel Movements Output, Urine 400 300 Physical Exam General Appearance: Alert, Oriented X3, Cooperative, No Acute Distress Skin: No Rashes, No Breakdown HEENT: Atraumatic, PERRLA, EOMI Neck: Supple, No JVD, No thryomegaly Lymphatic: Cervical nl Cardiovascular: Normal S1, Normal S2 Lungs: Normal Air Movement Abdomen: Normal Bowel Sounds, Soft, No Tenderness Extremities: No Clubbing, No Cyanosis, No Edema Vascular: Pulses Symmetrical Current Medications: Current Medications Sig/Yosvany Start time Last Medication Dose Route Stop Time Status Admin Amlodipine Besylate 5 MG DAILY 11/03 1009 AC 11/06 PO 0850 Enoxaparin Sodium 40 MG DAILY 11/04 1146 AC 11/06 SC 0850 Folic Acid 1 MG DAILY 11/05 1045 AC 11/06 PO 0849 Lisinopril 20 MG DAILY 11/03 1049 AC 11/06 PO 0850 Lorazepam 0 Q1P PRN 11/05 1045 AC 11/05 IV 1139 Melatonin 10 MG AT BEDTIME 11/05 2200 11/05 PO 2101 Multivitamins 1 TAB DAILY 11/05 1045 11/06 PO 0850 Omeprazole 40 MG DAILY AC 11/04 1147 AC 11/06 PO 0515 Polyethylene Glycol 17 GM DAILY 11/05 2108 11/06 PO 0849 Thiamine HCl 100 MG DAILY 11/05 1045 11/06 PO 0850 Last 24 Hrs of Lab/Jaime Results Last 24 Hrs of Labs/Mics: Laboratory Tests 11/06/16 0615: Anion Gap 9, Estimated GFR > 60, BUN/Creatinine Ratio 18.9 Assessment/Plan Assessment: This is a 61-year-old male with past medical history significant for hypertension, dyslipidemia, GERD, anxiety, panic attacks, depression admitted to the [facility] ICU for generalized twitching with euvolemic hypotonic hyponatremia in the setting of excessive drinking including beer, increased free water intake (approximately 2 L per day), being on SSRIs and hydrochlorothiazide. Admission vitals - afebrile, heart rate 99, respiratory rate 22, blood pressure 183/90, saturating at 97 on room air. CBC was normal. Sodium 112 on admission BUN and creatinine were normal. Urine osmolality and lites were checked in the ED- NORMAL Urine toxicology-negative SR , Rate 80, No ST-T wave abnormalities, QTC 420. Problem list #Euvolemic hypotonic hyponatremia; likely SIADH versus a beer potomania versus polydipsia #History of anxiety/depression #Excessive drinking #Hypertension #GERD #Hypertension #Hyperlipidemia Euvolemic hypotonic hyponatremia; Most likely drug-induced in the setting of long-term treatment with hydrochlorothiazide and more recently with an SSRI (escitalopram) versus excessive drinking of water 2 L per day versus excessive drinking of beer. * Patient was admitted to ICU for management of euvolemic hyponatremia, transferred to general medicine floor 11/04/2016 once patient was stable * Monitor vitals every shift * He was started on fluid restriction 1400 mL per day * Sodium corrected from 112 to 126 over 72 hours * We will change fluids restriction 800mL per day for now. * Regular diet with no sodium restriction * We will repeat the BEP every day * Our goal is a slow rise in serum sodium of approximately 8 mEq in 24 hours . * Avoid spontaneous pontine Demylination from rapid sodium correction * Should serum sodium rise more quickly than that, then we will need to infuse D5W and/or increase his by mouth fluid allotment. 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 Will continue other home medications-amlodipine 5 mg and lisinopril 20 mg. * Patient was hypertensive to 170s over 100 upon admission and received IV labetalol in the ED, monitorING blood pressure closely. * Blood pressure remained stable Alcohol withdrawal Patient drinks approximately 3 glasses of wine every day and also drinks beer almost every day. Denies any HI or SI. * Denies any anxiety, tremors, hallucinations * Denies any withdrawal seizures * Monitor on CIWA * Low-dose Ativan as per CIWA protocol * Multivitamin * Thiamine * Folate Anxiety/muscle twitching/depression Per patient, twitching started 3 months ago and gradually worsened. He reports sudden movements in his shoulder girdle which last the whole day for the most part and continue during night for this reason he is only able to sleep about an hour every night. * Psychiatrist on board * drywall metal stud worker on board * Educated patient on possible treatment plans including intensive outpatient treatment including dual diagnosis and mental health as well as outpatient treatment. * Discussed medication options for treatment of anxiety and depression both long and short term. * He states that lorazepam was helpful for him during this hospitalization for anxiety. * Will continue to hold lexapro as it could potentially contribute to further hyponatremia. * melatonin 10mg qhs for sleep. GERD Continue omeprazole hyperlipidemia Continue atorvastatin reg diet with 800 ml fluids restriction DVT PPx mechanical and pharmacological Full code Pain pathway Problem List: 1. Hyponatremia 2. Anxiety 3. Alcohol abuse Pain Ratin Pain Location: n/a Pain Goal: Remain pain free Pain Plan: tylenol Tomorrow's Labs & Rationales: bep in the setting of hyponatremia COLEMAN ALLEN MD 11/06/16 1351: Attending MD Review Statement Attending Statement Attending MD Statement: examined this patient, discuss w/resident/PA/RUBBER TUBING SPLICER, agreed w/resident/PA/RUBBER TUBING SPLICER, reviewed EMR data (avail), discussed with nursing, discussed with case mgmt, amended to note Attending Assessment/Plan: Patient seen and examined, remains anxious. Wants to speak with the social work therapist. I have paged social work and and waiting to here back from her. Sodium did not improve. It was slightly better as of yesterday and it has come down to 126 today. Would recommend more strict for distraction at 800 mL. Would recommend liberalizing sodium intake and stop the sodium restricted diet. If sodium continues to remain in the lower range, we might have to add salt tabs. Please discuss with nephrology. Blood pressure controlled without hydrochlorothiazide which has been held. Continue all other current medications. DVT px; Lovenox.
[2016-11-06 14:29] VITALS: BP 130/64
--- NOTE | 2016-11-06 14:36 | PN- Psychiatry ---
Assessment/Plan Impression: Identifying Info: 61-year-old male presents to [facility] emergency department on 11/03/16 with chief complaint of twitching and anxiety. Subsequently diagnosed with hyponatremia and admitted to critical care unit now on general medicine. No formal psych hx. SUBJECTIVE Pt interview with , Dotty, present. Reports "I'm still very anxious." Discussed medication options, treatment options, and evidence based CBT self help books patient can utilize. Agrees to trial gabapentin starting today. Agrees to IOP level of care. Pt requests to speak to social work again to see if there are any programs he could potentially qualify for they may help support him and his family through his illness. Brief ROS Gait: Steady Sleep: Improved with melatonin Appetite: Fair OBJECTIVE Mental Status Exam Presentation/Appearance: Cooperative with evaluation. Hospital garb. Sitting in bed. Patient experiences twitching frequently. Appears anxious. Orientation: x4 Sensorium: Awake and alert Eye contact: Appropriate Affect: Constricted, congruent Mood: "Anxious" Depression: Endorses Anxiety: Endorses Thought Content: - Denies SI/HI, AH/VH, PI. States and also believes they will not kill themselves. - Endorses Hopeless/Helpless Thoughts Thought Process: Perseverative on stressors primarily financial Associations: Appropriate Speech: WNL Judgment: Fair Insight: Fair Cognition: Memory: Grossly intact Attention/Concentration: Grossly intact, endorses issues r/t negative automatic thoughts Fund of Knowledge: Adequate Abstractions: Did not assess MMSE: Did not asses Discussed options for potential short-term management of anxiety during hospitalization with inpatient pharmacy yesterday. Recommended gabapentin off label or lorazepam. ASSESSMENT 61-year-old male presents with high anxiety and depression in the context of hyponatremia and several stressors primarily financial. He has been self-medicating with alcohol, 2-3 drinks nightly. He is agreeable to and would benefit from [facility] level of care. Diagnosis Generalized anxiety disorder Unspecified depressive disorder Alcohol use disorder A total of 45 minutes was spent with the patient with more than 50% of the time spent in counseling and/or coordination of care. Suggestion: 1. Please continue to hold lexapro as it could potentially contribute to further hyponatremia. Plan to restart antidepressant once Na is well within normal limits. Zoloft or Paxil may be more appropriate choices for this anxious patient. 2. Continue to monitor CIWA and PRN ativan. Pt cannot continue benzodiazepine post discharge for IOP level of care. 3. Please order gabapentin 300mg PO TID with first dose now. We may need to titrate for effect. 4. IOP intake appointment scheduled for next available appointment. Please include the following in discharge instructions "[facility] intake appointment scheduled for 1:45 PM on Thursday11/14/[address] [place] [address] in [place]. Call [phone] with any questions." 5. Pt to look into CBT bibliotherapy books recommended. 6. Will discuss case with SW for f/u tomorrow. Thank you for including psychiatry in this case we will continue to follow. Subjective Subjective: as above Objective Last 24 Hrs of Vital Signs/I&O Current Medications Sig/Yosvany Start time Last Medication Dose Route Stop Time Status Admin Amlodipine Besylate 5 MG DAILY 11/03 1009 AC 11/06 PO 0850 Enoxaparin Sodium 40 MG DAILY 11/04 1146 AC 11/06 SC 0850 Folic Acid 1 MG DAILY 11/05 1045 AC 11/06 PO 0849 Lisinopril 20 MG DAILY 11/03 1049 AC 11/06 PO 0850 Lorazepam 0 Q1P PRN 11/05 1045 AC 11/05 IV 1139 Melatonin 10 MG AT BEDTIME 11/05 2200 AC 11/05 PO 2101 Multivitamins 1 TAB DAILY 11/05 1045 AC 11/06 PO 0850 Omeprazole 40 MG DAILY AC 11/04 1147 AC 11/06 PO 0515 Polyethylene Glycol 17 GM DAILY 11/05 2108 AC 11/06 PO 0849 Thiamine HCl 100 MG DAILY 11/05 1045 AC 11/06 PO 0850 Laboratory Tests 11/06/16 0615: Anion Gap 9, Estimated GFR > 60, BUN/Creatinine Ratio 18.9 Vital Signs Date Time Temp Pulse Resp B/P B/P Pulse O2 O2 Flow FiO2 Mean Ox Delivery Rate 11/06 1429 98.4 89 20 130/64 95 Room Air 11/06 0850 62 118/62 11/06 0850 62 118/62 11/06 0621 98.3 57 20 116/64 95 Room Air 11/06 0000 98.0 55 20 122/72 11/05 2248 98.0 55 20 122/72 94 Room Air Intake & Output 11/06 1600 11/06 0800 11/06 0000 Intake Total 110 200 Output Total 400 300 Balance -290 -100 Intake, IV 10 Intake, Oral 100 200 Number 0 Bowel Movements Output, Urine 400 300
--- NOTE | 2016-11-06 15:11 | PN- Nephrology ---
Assessment/Plan Assessment: 1. Hyponatremia secondary to medications - improved 2. Persistent myoclonic activity which is likely anxiety related Suggestion: 1. Maintain by mouth fluid restriction of 1000 mL per day 2. Begin sodium chloride tablets 1000 mg 3 times a day with furosemide 20 mg by mouth twice a day. 3. Continue psych and social service follow-up 4. Mobilize Subjective Subjective: Patient seems comfortable until we start to talk about his social and financial issues at which point he becomes more agitated and twitchy. He has no other specific complaints at this time. Serum sodium remains in the mid to upper 120s. Objective Vital Signs and I&Os Vital Signs Date Time Temp Pulse Resp B/P B/P Pulse O2 O2 Flow FiO2 Mean Ox Delivery Rate 11/06 1429 98.4 89 20 130/64 95 Room Air 11/06 0850 62 118/62 11/06 0850 62 118/62 11/06 0621 98.3 57 20 116/64 95 Room Air 11/06 0000 98.0 55 20 122/72 11/05 2248 98.0 55 20 122/72 94 Room Air Intake & Output 11/06 1600 11/06 0400 11/05 1600 11/05 0400 11/04 1600 11/04 0400 Intake Total 110 200 630 390 952 341 Output Total 400 300 672 508 2199 1100 Balance -290 -100 -20 90 -73 -759 Intake, IV 10 0 10 0 Intake, Oral 100 200 630 390 942 341 Number 0 0 0 Bowel Movements Output, Urine 400 300 807 065 1204 1100 Physical Exam: General: Well-developed, white male in NAD Skin: No rash or jaundice HEENT: Conjunctivae pink, sclerae anicteric, mucous membranes moist Neck: Without masses or thyromegaly, no supraclavicular or cervical adenopathy Chest: Clear to P&A Heart: Regular rate and rhythm without S3 or rub Abdomen: Soft and nontender without palpable masses or organomegaly Extremities: Without cyanosis or edema Neuro: No focal findings, no asterixis or myoclonus but still with some spontaneous myoclonic activity today. Results Pertinent Lab Results: Laboratory Tests 11/06 11/05 11/05 11/04 0615 0830 0440 2225 Chemistry Sodium (137 - 145 mmol/L) 126 L 128 L 126 L 121 L Potassium (3.5 - 5.1 mmol/L) 4.3 4.3 3.8 3.9 Chloride (98 - 107 mmol/L) 90 L 87 L 90 L 86 L Carbon Dioxide (22 - 30 mmol/L) 26 28 28 25 Anion Gap (5 - 16) 9 13 8 10 BUN (9 - 20 mg/dL) 17 13 14 17 Creatinine (0.7 - 1.2 mg/dL) 0.9 0.9 0.8 0.9 Estimated GFR (>60 ml/min) > 60 > 60 > 60 > 60 BUN/Creatinine Ratio (7 - 25 %) 18.9 14.4 17.5 18.9 Phosphorus (2.5 - 4.5 mg/dL) 3.9 Magnesium (1.6 - 2.3 mg/dL) 2.1 Hematology CBC w Diff NO MAN DIFF REQ WBC (4.8 - 10.8 /CUMM) 5.3 RBC (4.70 - 6.10 /CUMM) 4.45 L Hgb (14.0 - 18.0 G/DL) 13.8 L Hct (42 - 52 %) 40.9 L MCV (80.0 - 94.0 FL) 91.9 MCH (27.0 - 31.0 PG) 31.0 RDW (11.5 - 14.5 %) 12.6 Plt Count (130 - 400 /CUMM) 316 MPV (7.4 - 10.4 FL) 7.2 L Gran % (42.2 - 75.2 %) 60.1 Lymphocytes % (20.5 - 51.1 %) 20.9 Monocytes % (1.7 - 9.3 %) 15.7 H Eosinophils % (0 - 5 %) 2.2 Basophils % (0.0 - 2.0 %) 1.1 Absolute Granulocytes (1.4 - 6.5 /CUMM) 3.2 Absolute Lymphocytes (1.2 - 3.4 /CUMM) 1.1 L Absolute Monocytes (0.10 - 0.60 /CUMM) 0.8 H Absolute Eosinophils (0.0 - 0.7 /CUMM) 0.1 Absolute Basophils (0.0 - 0.2 /CUMM) 0.1 PUBS MCHC (33.0 - 37.0 G/DL) 33.7 11/04 11/04 11/04 11/04 1837 1200 0825 0300 Chemistry Sodium (137 - 145 mmol/L) 121 L 122 L 120 L Potassium (3.5 - 5.1 mmol/L) 4.0 4.1 4.2 Chloride (98 - 107 mmol/L) 84 L 84 L 84 L Carbon Dioxide (22 - 30 mmol/L) 25 26 25 Anion Gap (5 - 16) 12 12 10 BUN (9 - 20 mg/dL) 18 12 10 Creatinine (0.7 - 1.2 mg/dL) 1.1 0.9 0.8 Estimated GFR (>60 ml/min) > 60 > 60 > 60 BUN/Creatinine Ratio (7 - 25 %) 16.4 13.3 12.5 Uric Acid (3.5 - 8.5 mg/dL) 3.4 L Phosphorus (2.5 - 4.5 mg/dL) 4.2 Cortisol AM Sample (4.46 - 22.7 ug/dL) 5.2 11/04 11/03 11/03 0300 2158 1810 Chemistry Sodium (137 - 145 mmol/L) 121 L 118 *L 116 *L Potassium (3.5 - 5.1 mmol/L) 3.7 3.6 3.5 Chloride (98 - 107 mmol/L) 85 L 82 L 80 L Carbon Dioxide (22 - 30 mmol/L) 23 26 24 Anion Gap (5 - 16) 12 10 12 BUN (9 - 20 mg/dL) 10 10 10 Creatinine (0.7 - 1.2 mg/dL) 0.8 0.8 0.9 Estimated GFR (>60 ml/min) > 60 > 60 > 60 BUN/Creatinine Ratio (7 - 25 %) 12.5 11.1 Glucose (65 - 99 mg/dL) 98 Calcium (8.4 - 10.2 mg/dL) 9.3 Phosphorus (2.5 - 4.5 mg/dL) 4.5 Magnesium (1.6 - 2.3 mg/dL) 2.0 Total Bilirubin (0.2 - 1.3 mg/dL) 1.0 AST (17 - 59 U/L) 28 ALT (21 - 72 U/L) 43 Albumin (3.5 - 5.0 g/dL) 4.6 Hematology CBC w Diff NO MAN DIFF REQ WBC (4.8 - 10.8 /CUMM) 6.9 RBC (4.70 - 6.10 /CUMM) 4.49 L Hgb (14.0 - 18.0 G/DL) 13.9 L Hct (42 - 52 %) 41.5 L MCV (80.0 - 94.0 FL) 92.5 MCH (27.0 - 31.0 PG) 30.9 RDW (11.5 - 14.5 %) 12.5 Plt Count (130 - 400 /CUMM) 346 MPV (7.4 - 10.4 FL) 7.1 L Gran % (42.2 - 75.2 %) 61.1 Lymphocytes % (20.5 - 51.1 %) 21.4 Monocytes % (1.7 - 9.3 %) 15.5 H Eosinophils % (0 - 5 %) 1.6 Basophils % (0.0 - 2.0 %) 0.4 Absolute Granulocytes (1.4 - 6.5 /CUMM) 4.2 Absolute Lymphocytes (1.2 - 3.4 /CUMM) 1.5 Absolute Monocytes (0.10 - 0.60 /CUMM) 1.1 H Absolute Eosinophils (0.0 - 0.7 /CUMM) 0.1 Absolute Basophils (0.0 - 0.2 /CUMM) 0 PUBS MCHC (33.0 - 37.0 G/DL) 33.4
[2016-11-06 22:47] VITALS: BP 120/70
[2016-11-07] VITALS: BP 120/70
[2016-11-07 06:49] VITALS: BP 126/73
[2016-11-07 08:00] VITALS: BP 126/73
--- NOTE | 2016-11-07 08:35 | PN- Housestaff ---
YVAN LY 11/07/16 0835: Subjective Follow-up For: #Euvolemic hypotonic hyponatremia; likely SIADH versus a beer potomania versus polydipsia #History of anxiety/depression #Excessive drinking #Hypertensio Complaints: pain scale (0-10) Subjective: Patient was seen and examined this morning. He is alert awake and oriented times place and person. No acute overnight events. He was transferred from ICU to general medicine floor for further monitoring of hyponatremia. Patient continues to report bilateral shoulder TWITCHING. He was very anxious this morning about the financial issues, wants to talk to social media assistant. He was started on gabapentin for anxiety. Denies any dizziness, lightheadedness, confusion, generalized weakness, tiredness or fatigue. Offers no other complaints Vitals were stable. Afebrile, heart rate 59, respiratory rate 20, blood pressure 130/70, saturating at 99 on room air Review of Systems Constitutional: Reports: no symptoms. Objective Last 24 Hrs of Vital Signs/I&O Vital Signs Date Time Temp Pulse Resp B/P B/P Pulse O2 O2 Flow FiO2 Mean Ox Delivery Rate 11/07 1030 55 126/73 11/07 1030 55 126/73 11/07 0800 97.9 55 20 126/73 11/07 0649 97.9 55 20 126/73 96 Room Air 11/07 0000 97.9 59 20 120/70 11/06 2247 97.9 59 20 120/70 95 Room Air 11/06 1429 98.4 89 20 130/64 95 Room Air Intake & Output 11/07 1600 11/07 0800 11/07 0000 Intake Total 70 340 Output Total 600 500 Balance -530 -160 Intake, IV 10 Intake, Oral 60 340 Number 0 Bowel Movements Output, Urine 600 500 Physical Exam General Appearance: Alert, Oriented X3, Cooperative, No Acute Distress Skin: No Rashes, No Breakdown HEENT: Atraumatic, PERRLA, EOMI, Mucous Membr. moist/pink Neck: Supple, No JVD Lymphatic: Cervical nl Cardiovascular: Normal S1, Normal S2 Lungs: Normal Air Movement Abdomen: Normal Bowel Sounds, Soft, No Tenderness Neurological: Strength at 5/5 X4 Ext, Normal Tone, Sensation Intact, Cranial Nerves 3-12 NL Extremities: No Clubbing, No Cyanosis, No Edema Vascular: Pulses Symmetrical Current Medications: Current Medications Sig/Yosvany Start time Last Medication Dose Route Stop Time Status Admin Amlodipine Besylate 5 MG DAILY 11/03 1009 AC 11/07 PO 1030 Enoxaparin Sodium 40 MG DAILY 11/04 1146 AC 11/07 SC 1029 Folic Acid 1 MG DAILY 11/05 1045 AC 11/07 PO 1029 Furosemide 20 MG BID 11/06 2200 AC 11/07 PO 1029 Gabapentin 300 MG Q8 11/06 1615 AC 11/07 PO 0540 Lisinopril 20 MG DAILY 11/03 1049 AC 11/07 PO 1030 Lorazepam 0 Q1P PRN 11/05 1045 AC 11/05 IV 1139 Melatonin 10 MG AT BEDTIME 11/05 2200 AC 11/06 PO 2205 Multivitamins 1 TAB DAILY 11/05 1045 AC 11/07 PO 1030 Omeprazole 40 MG DAILY AC 11/04 1147 AC 11/07 PO 0540 Polyethylene Glycol 17 GM DAILY 11/05 2108 AC 11/07 PO 1031 Sodium Chloride 1,000 MG TID 11/06 1615 AC 11/07 PO 1031 Thiamine HCl 100 MG DAILY 11/05 1045 AC 11/07 PO 1030 Last 24 Hrs of Lab/Jaime Results Last 24 Hrs of Labs/Mics: Laboratory Tests 11/07/16 0735: Anion Gap 9, Estimated GFR > 60, BUN/Creatinine Ratio 14.0 Assessment/Plan Assessment: This is a 61-year-old male with past medical history significant for hypertension, dyslipidemia, GERD, anxiety, panic attacks, depression admitted to the [facility] ICU for generalized twitching with euvolemic hypotonic hyponatremia in the setting of excessive drinking including beer, increased free water intake (approximately 2 L per day), being on SSRIs and hydrochlorothiazide. Admission vitals - afebrile, heart rate 99, respiratory rate 22, blood pressure 183/90, saturating at 97 on room air. CBC was normal. Sodium 112 on admission BUN and creatinine were normal. Urine osmolality and lites were checked in the ED- NORMAL Urine toxicology-negative SR , Rate 80, No ST-T wave abnormalities, QTC 420. Problem list #Euvolemic hypotonic hyponatremia; likely SIADH versus a beer potomania versus polydipsia #History of anxiety/depression #Excessive drinking #Hypertension #GERD #Hypertension #Hyperlipidemia Euvolemic hypotonic hyponatremia; Most likely drug-induced in the setting of long-term treatment with hydrochlorothiazide and more recently with an SSRI (escitalopram) versus excessive drinking of water 2 L per day versus excessive drinking of beer. * Patient was admitted to ICU for management of euvolemic hyponatremia, transferred to general medicine floor 11/04/2016 once patient was stable * Monitor vitals every shift * He was started on fluid restriction 1400 mL per day * Sodium corrected from 112 to 132 IN 4 DAYS. * fluids restriction 1000mL per day for now. * Receives sodium chloride tablets and Lasix. * Regular diet with no sodium restriction * We will repeat the BEP every day * Our goal is a slow rise in serum sodium of approximately 8 mEq in 24 hours . * Avoid spontaneous pontine Demylination from rapid sodium correction * Should serum sodium rise more quickly than that, then we will need to infuse D5W and/or increase his by mouth fluid allotment. Hypertension Will hold TAKER OUT hydrochlorothiazide. Will continue other home medications-amlodipine 5 mg and lisinopril 20 mg. * Patient was hypertensive to 170s over 100 upon admission and received IV labetalol in the ED, monitorING blood pressure closely. * Blood pressure remained stable Alcohol withdrawal Patient drinks approximately 3 glasses of wine every day and also drinks beer almost every day. Denies any HI or SI. * Denies any anxiety, tremors, hallucinations * Denies any withdrawal seizures * Monitor on CIWA * Low-dose Ativan as per CIWA protocol * Multivitamin * Thiamine * Folate Anxiety/muscle twitching/depression Per patient, twitching started 3 months ago and gradually worsened. He reports sudden movements in his shoulder girdle which last the whole day for the most part and continue during night for this reason he is only able to sleep about an hour every night. * Psychiatrist on board * opinion polls survey worker on board * Educated patient on possible treatment plans including intensive outpatient treatment including dual diagnosis and mental health as well as outpatient treatment. * Discussed medication options for treatment of anxiety and depression both long and short term. * He states that lorazepam was helpful for him during this hospitalization for anxiety. * Will continue to hold lexapro as it could potentially contribute to further hyponatremia. * melatonin 10mg qhs for sleep. * Gabapentin 300 mg 3 times a day was started for anxiety GERD Continue omeprazole hyperlipidemia Continue atorvastatin reg diet with 1000 ml fluids restriction DVT PPx mechanical and pharmacological Full code Pain pathway Problem List: 1. Hyponatremia Pain Ratin Pain Location: N/A Pain Goal: Remain pain free Pain Plan: TYLENOL Tomorrow's Labs & Rationales: NONE COLEMAN ALLEN MD 11/07/16 1308: Attending MD Review Statement Attending Statement Attending MD Statement: examined this patient, discuss w/resident/PA/ORDER PACKER OR PACKAGER, agreed w/resident/PA/ORDER PACKER OR PACKAGER, reviewed EMR data (avail), discussed with nursing, discussed with case mgmt, amended to note Attending Assessment/Plan: Patient seen and examined, doing okay. He is still anxious. He wants to speak with the social media assistant. His sodium has improved to 132. Patient is medically stable for discharge. We discussed the Dr. Perrin who does not recommend continuation of fluid restriction, salt tabs on Lasix. Patient was educated about moderate amount of fluid intake. His hydrochlorothiazide has been held and it will be on hold. Blood pressure stable on lisinopril and a general yosvany. Patient to follow with primary care doctor as well as nephrology if needed as an outpatient. Repeat BEP will be checked in one week.
[2016-11-07] MEDS ORDERED: GABAPENTIN300 M2 PO ×2 (08:41→10:23)
[2016-11-07] MEDS ORDERED: VITAMIN B-1100 MG PO (10:23)
[2016-11-07] MEDS ORDERED: FOLIC ACID1 M1 PO (10:23)
[2016-11-07] MEDS ORDERED: ONE DAILY MULT1 EAC2 PO (10:23)
[2016-11-07] MEDS ORDERED: MELATONIN5 M7 PO (10:23)
--- NOTE | 2016-11-07 12:45 | NUR ---
Met with patient this am at his request. Rivera has an intake appointment secured at the [facility] for next 11/14/16 at 2:00pm. New medications have been initiated. Information about food stamp application process provided in written format as well. Froilan remains anxious. Case discussed with Psych DEPUTY K 9. Please call if other social work needs arise.
--- NOTE | 2016-11-07 13:42 | Discharge Summary ---
Visit Information Visit Dates Admission Date: 11/03/16 Discharge Date: 11/07/16 Hospital Course Course Attending Physician: GUILLERMO ELAINE,LENCHO Mckeon Primary Care Physician: dr. vital Consulting Request: 1 Consulting Specialty: Psychiatry Consulting Request: 2 Consulting Specialty: Nephrology Hospital Course: This is a 61-year-old male with past medical history significant for hypertension, dyslipidemia, GERD, anxiety, panic attacks, depression admitted to the [facility] ICU for generalized twitching with euvolemic hypotonic hyponatremia in the setting of excessive drinking including beer, increased free water intake (approximately 2 L per day), being on SSRIs and hydrochlorothiazide. Admission vitals - afebrile, heart rate 99, respiratory rate 22, blood pressure 183/90, saturating at 97 on room air. CBC was normal. Sodium 112 on admission BUN and creatinine were normal. Urine osmolality and lites were checked in the ED- NORMAL Urine toxicology-negative SR , Rate 80, No ST-T wave abnormalities, QTC 420. Problem list #Euvolemic hypotonic hyponatremia; likely SIADH versus a beer potomania versus polydipsia #History of anxiety/depression #Excessive drinking #Hypertension #GERD #Hypertension #Hyperlipidemia Euvolemic hypotonic hyponatremia; Most likely drug-induced in the setting of long-term treatment with hydrochlorothiazide and more recently with an SSRI (escitalopram) versus excessive drinking of water 2 L per day versus excessive drinking of beer. Patient was admitted to ICU for management of euvolemic hyponatremia, transferred to general medicine floor 11/04/2016 once patient was stable. Vitals were monitored every shift. He was placed on fluid restriction 1000 mL per day. Sodium corrected from 112 to 132 in 4 days. He received sodium chloride tablets and Lasix for one day- After which sodium improved. He was placed on regular diet with no sodium restriction. He was advised to drink moderate amounts of water. He was advised not to take hydrochlorothiazide and Lexapro which may cause hyponatremia. 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 We continued other home medications-amlodipine 5 mg and lisinopril 20 mg. Blood pressure remained stable Alcohol withdrawal Patient drinks approximately 3 glasses of wine every day and also drinks beer almost every day. Denied any HI or SI. Denied any anxiety, tremors, hallucinations, withdrawal seizures. He was monitored on CIWA and received Ativan as per CIWA protocol. He was discharged on multivitamin, thiamine, folate. Anxiety/muscle twitching/depression Per patient, twitching started 3 months ago and gradually worsened. He reports sudden movements in his shoulder girdle which last the whole day for the most part and continue during night for this reason he is only able to sleep about an hour every night. Psychiatrist, social media strategist on board He was Educated on possible treatment plans including intensive outpatient treatment including dual diagnosis and mental health as well as outpatient treatment. Also Discussed medication options for treatment of anxiety and depression both long and short term. He Was advised to take melatonin 10 mg for sleep at nighttime and gabapentin 300 mg 3 times a day for anxiety stopped lexapro as it could potentially contribute to further hyponatremia. GERD Continued omeprazole hyperlipidemia Continued atorvastatin reg diet with 1000 ml fluids restriction DVT PPx mechanical and pharmacological Full code Pain pathway Complications: none Allergies: Coded Allergies: hydrochlorothiazide (Severe, sever hyponatremia 11/04/16) Significant Procedures: none Pertinent Lab Results: Cbc was normal Bep showed hyponatremia 112 Disposition Summary Disposition Principal Diagnosis: #Euvolemic hypotonic hyponatremia; likely SIADH versus a beer potomania versus polydipsia #History of anxiety/depression #Excessive drinking Additional Diagnosis: hypertension Discharge Disposition: home or self care Discharge Instructions General Discharge Information Code Status: Full Code Patient's Diet: as tolerated Drink moderate amount of water as required Patient's Activity: As tolerated Follow-Up Instructions/Appts: please follow up with your PCP within one week of discharge. please follow up with your CORRECTIONAL SUPERVISOR LIEUTENANT within one week of discharge. Changes have been made to your medications, please take a note and continue to take your medications as prescribed. dont take hydrochlorothiazide Don't take Lexapro take gabapentin as directed for anxiety IOP intake appointment scheduled for next available appointment. "[facility] intake appointment scheduled for 1:45 PM on Thursday11/14/[address] [place] [address]. Call [phone] with any questions." please check BEP AND CC REPORTS TO PCP AND in one weak. script provided for BEP Medications at Discharge Discharge Medications: Stop taking the following medications: Hydrochlorothiazide (Hydrochlorothiazide) 12.5 MG TABLET ORAL DAILY Qty = 90 Escitalopram Oxalate (Escitalopram Oxalate) 5 MG TABLET ORAL DAILY Qty = 90 Continue taking these medications: Amlodipine Besylate (Amlodipine Besylate) 5 MG TABLET 1 Tablet ORAL DAILY Qty = 90 Comments: Last Taken:11/07/16 Time:1030 Lisinopril (Lisinopril) 20 MG TABLET 1 Tablet ORAL DAILY Qty = 90 Comments: Last Taken:11/07/16 Time:1030 Rosuvastatin Calcium (Crestor) 10 MG TABLET 1 Tablet ORAL DAILY Qty = 90 Omeprazole (Omeprazole) 40 MG CAPSULE.DR 1 Capsule ORAL DAILY Comments: Last Taken:11/07/16 Time:0540 Start taking the following new medications: Folic Acid (Folic Acid) 1 MG TABLET 1 Milligram ORAL DAILY Qty = 30 No Refills Instructions: . Gabapentin (Gabapentin) 300 MG CAPSULE 300 Milligram ORAL EVERY 8 HOURS Qty = 60 No Refills Instructions: . Melatonin (Melatonin) 5 MG TABLET 10 Milligram ORAL AT BEDTIME Qty = 30 No Refills Instructions: . Multivitamin (One Daily Multivitamin) 1 EACH TABLET 1 Tablet ORAL DAILY Qty = 30 No Refills Instructions: . Thiamine HCl (Vitamin B-1) 100 MG TABLET 100 Milligram ORAL DAILY Qty = 30 No Refills Instructions: . Copies To: KVNG ELAINE,CHRISTOPHER Carreno
[2016-11-07 14:48] VITALS: BP 120/70
--- NOTE | 2016-11-07 15:11 | PN- Psychiatry ---
Assessment/Plan Impression: Identifying Info: 61-year-old male presents to [facility] emergency department on 11/03/16 with chief complaint of twitching and anxiety. Subsequently diagnosed with hyponatremia and admitted to critical care unit now on general medicine. No formal psych hx. SUBJECTIVE Pt interview with , Dotty, present. He states "how am I going to go to work. " Educated on evening IOP program. Expresses concern that he will not be ready for discharge. Discussed plan for discharge in detail including appointment info, medication, crisis instructions, as well as nonpharmologic anxiety and stress reduction including bibliotherapy, light exercises, breathing, and distraction techniques. Brief ROS Gait: Steady Sleep: Improved with melatonin Appetite: Fair OBJECTIVE Mental Status Exam Presentation/Appearance: Cooperative with evaluation. Street clothes. Sitting in bed. Patient experiences twitching but less than previously. Orientation: x4 Sensorium: Awake and alert Eye contact: Appropriate Affect: Constricted, congruent Mood: "Anxious" Depression: Endorses Anxiety: Endorses Thought Content: - Denies SI/HI, AH/VH, PI. States and also believes they will not kill themselves. - Endorses Hopeless/Helpless Thoughts Thought Process: Perseverative on stressors primarily financial Associations: Appropriate Speech: WNL Judgment: Fair Insight: Fair Cognition: Memory: Grossly intact Attention/Concentration: Grossly intact, endorses issues r/t negative automatic thoughts Fund of Knowledge: Adequate Abstractions: Did not assess MMSE: Did not asses ASSESSMENT 61-year-old male presents with high anxiety and depression in the context of hyponatremia and several stressors primarily financial. He has been self-medicating with alcohol, 2-3 drinks nightly. He is agreeable to and would benefit from IOP level of care. Diagnosis Generalized anxiety disorder vs Adjustment disorder with anxious features Unspecified depressive disorder Alcohol use disorder r/o dependent traits A total of 60 minutes was spent with the patient with more than 50% of the time spent in counseling and/or coordination of care. Suggestion: 1. Please continue to hold lexapro. Zoloft or Paxil may be more appropriate choices for this anxious patient. He will discuss with outpatient prescriber. 2. Continue gabapentin. 3. IOP intake appointment scheduled for next available appointment. Please include the following in discharge instructions "[facility] Intensive Outpatient Program intake appointment scheduled for 1:45 PM on Thursday11/14/[address] [place] [address]. Call [phone] with any questions." 4. Pt and family to obtain CBT books as reccomended. 5. Pt to practice stress and anxiety reduction techniques. 6. Patient or family to call [phone], or go to nearest emergency department in event of psychiatric emergency. Thank you for including psychiatry we will sign off at discharge. Subjective Subjective: as above Objective Last 24 Hrs of Vital Signs/I&O Current Medications Sig/Yosvany Start time Last Medication Dose Route Stop Time Status Admin Amlodipine Besylate 5 MG DAILY 11/03 1009 AC 11/07 PO 1030 Enoxaparin Sodium 40 MG DAILY 11/04 1146 AC 11/07 SC 1029 Folic Acid 1 MG DAILY 11/05 1045 AC 11/07 PO 1029 Furosemide 20 MG BID 11/06 2200 AC 11/07 PO 1029 Gabapentin 300 MG Q8 11/06 1615 AC 11/07 PO 1448 Lisinopril 20 MG DAILY 11/03 1049 AC 11/07 PO 1030 Lorazepam 0 Q1P PRN 11/05 1045 AC 11/05 IV 1139 Melatonin 10 MG AT BEDTIME 11/05 2200 AC 11/06 PO 2205 Multivitamins 1 TAB DAILY 11/05 1045 AC 11/07 PO 1030 Omeprazole 40 MG DAILY AC 11/04 1147 AC 11/07 PO 0540 Polyethylene Glycol 17 GM DAILY 11/05 2108 AC 11/07 PO 1031 Sodium Chloride 1,000 MG TID 11/06 1615 AC 11/07 PO 1031 Thiamine HCl 100 MG DAILY 11/05 1045 AC 11/07 PO 1030 Laboratory Tests 11/07/16 0735: Anion Gap 9, Estimated GFR > 60, BUN/Creatinine Ratio 14.0 Vital Signs Date Time Temp Pulse Resp B/P B/P Pulse O2 O2 Flow FiO2 Mean Ox Delivery Rate 11/07 1448 99.3 81 18 120/70 97 11/07 1030 55 126/73 11/07 1030 55 126/73 11/07 0800 97.9 55 20 126/73 11/07 0649 97.9 55 20 126/73 96 Room Air 11/07 0000 97.9 59 20 120/70 11/06 2247 97.9 59 20 120/70 95 Room Air Intake & Output 11/07 1600 06/23 0800 11/07 0000 Intake Total 70 340 Output Total 600 500 Balance -530 -160 Intake, IV 10 Intake, Oral 60 340 Number 0 Bowel Movements Output, Urine 600 500
== END 2016-11-07 15:15 | DRG 644 ==
LOC: ERH 06:59 → 2NB 09:05 → CRI 09:05 → 2NB 09:05 → ERHI 09:05 → ENRESERV 09:27 → ENTRNSPT 10:44 → EDTRNSPTSTS 10:46 → CRI 10:57 → CMPTRNSPT 11:03 → 2NB 11-04 14:48 → ENPENDDIS 11-07 11:19 → 2NB 11-07 15:15
PROVIDERS: Emergency Medicine; Internal Medicine; ADMIT Internal Medicine Pulmonary Disease
DX: E22.2 Syndrome of inappropriate secretion of antidiuretic hormone (principal); F10.239 Alcohol dependence with withdrawal, unspecified; I10 Essential (primary) hypertension; T43.225A Adverse effect of selective serotonin reuptake inhibitors, initial encounter; R63.4 Abnormal weight loss; Z68.26 Body mass index [BMI] 26.0-26.9, adult; E78.5 Hyperlipidemia, unspecified; K21.9 Gastro-esophageal reflux disease without esophagitis; F41.0 Panic disorder [episodic paroxysmal anxiety]; F32.9 Major depressive disorder, single episode, unspecified; R63.1 Polydipsia; Z87.891 Personal history of nicotine dependence; R25.3 Fasciculation; R35.1 Nocturia; F41.1 Generalized anxiety disorder; F43.23 Adjustment disorder with mixed anxiety and depressed mood
CPT/HCPCS: 2NBP; 84133; 84300; CCU; 36415; 80307; 82436; 82570; 93005; 93010; G0480; J1650; J2060; J3490